=== PATIENT | male | born 1975 | race Caucasian/White ===

== ENCOUNTER 2017-01-12 18:55 | Inpatient (IN) | payer OTHER ==
--- NOTE | ~2017-01-12 | CN ---
Consultation Report [facility] [address] [place]. [address] NAME: KAILA GRANDE : 73 STATUS : ADM IN PAT#: [id number] AGE: 41 ADM/REG DATE : 01/12/17 MR#: [id number] REPORT SERV DATE: 01/14/17 DICTATED BY: MARGARITO NELSON DATE: 01/14/17 REPORT STATUS : Draft TRANSCRIBED BY: MODL DATE: 01/14/17 CONSULTATION DATE OF CONSULTATION: 01/14/2017 HISTORY OF PRESENT ILLNESS: The patient is a 41-year-old white male, who has developed shortness of breath over the past several weeks with increasing symptoms. Came into the hospital with shortness of breath and was found to have heart failure, possible pneumonia. Echocardiogram reveals severe cardiomyopathy with severe MR, ejection fraction 15%. Thought to have a viral myocarditis. PAST MEDICAL HISTORY: Significant for previous operation on his left knee. 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 History of pneumonia in the past. SOCIAL HISTORY: He does smoke. Does occasionally smoke marijuana. He works as a automobile accessories installer. He is , no children. REVIEW OF SYSTEMS: GI: He has been trying to lose weight and lost about 60 pounds. : Negative. NEURO: Negative. MUSCULOSKELETAL: Negative. ENDOCRINE: Negative. HEME/ONC: Negative. ALLERGIES: NO KNOWN ALLERGIES. HOME MEDICATIONS: Included Augmentin 875, and Afrin nasal spray. PHYSICAL EXAMINATION: VITAL SIGNS: Currently, his vital signs are stable. Blood pressure in the morning was 121/69, pulse is 124, temperature 97.4, saturation 100% on nasal cannula. GENERAL: The patient is awake, alert, and oriented. HEENT: Head is normocephalic. Sclerae and conjunctivae are clear. NECK: Supple. Some JVD noted. CHEST: Decreased breath sounds, but clear throughout the lungs. CARDIAC: The PMI is displaced laterally. S1 and S2. Slight ejection murmur heard over the mitral area. ABDOMEN: Slightly obese and nontender. No masses or organomegaly. EXTREMITIES: Scar from previous surgery. +1 edema. NEUROLOGIC: Cranial nerves 2 through 12 intact. Deep tendon reflexes are normal. LABORATORY DATA: Shows sodium 140, potassium 3.8, chloride 106, CO2 of 23, BUN 32, Consultation Report [address] [place]. [address] NAME: KAILA GRANDE : 73 STATUS : ADM IN [facility]#: [id number] AGE: 41 ADM/REG DATE : 01/12/17 MR#: [id number] REPORT SERV DATE: 01/14/17 DICTATED BY: MARGARITO NELSON DATE: 01/14/17 REPORT STATUS : Draft TRANSCRIBED BY: MODTremayne DATE: 01/14/17 creatinine 1.54, glucose 108, calcium 8.2, phosphorus 3.5, total protein 5.7, albumin 2.9. Total bilirubin 0.8, alkaline phosphatase 143, ALT 361, AST 107. CBC: H and H are 15.6 and 44.2, white count 84907, 88 polys, 6 lymphocytes, platelets 221,000. I believe the patient is on IV Solu-Medrol. Blood cultures are negative day 1. Chest PA and lateral taken today shows bibasilar atelectasis and/or infiltrate. Small effusions have improved compared to previous study. Hepatitis profile is negative. IMPRESSION: 1. Cardiomyopathy, probably viral. Echocardiogram shows EF of 15%. 2. Mild elevation of LFTs consistent with hepatic congestion. 3. History of juvenile rheumatoid arthritis. PLAN: Continue diuresis. We will monitor for LifeVest. RP/MARIJA Margarito Nelson M.D. / [id number] CC: Leander Fisher M.D.
--- NOTE | ~2017-01-12 | CN ---
Consultation Report [facility] [address] [place]. [address] NAME: KAILA FLOYD : 73 STATUS : ADM IN PAT#: [id number] AGE: 41 ADM/REG DATE : 01/12/17 MR#: [id number] REPORT SERV DATE: 01/14/17 DICTATED BY: RAF ATWOOD DATE: 01/14/17 REPORT STATUS : Draft TRANSCRIBED BY: MODL DATE: 01/14/17 CONSULTATION DATE OF CONSULTATION: 01/14/2017 REASON FOR CONSULTATION: New cardiomyopathy. HISTORY OF PRESENT ILLNESS: Mr. Floyd is a pleasant 41-year-old man without significant medical history, who was admitted to [facility] on 01/12/2017 for progressive dyspnea and coughing, with a diagnosis of bilateral pneumonia as well as sepsis in this setting. Over the past several weeks, he has had shortness of breath as well as coughing productive of sputum, which had not improved after getting outpatient antibiotics. His symptoms have progressed over the past two weeks, and although he was fully active prior to this, he is now unable to walk even several feet, return in bed without getting significantly dyspneic. Over the past two days in the hospital, he has continued to receive antibiotics, without any improvement in his clinical status whatsoever. He remained significantly tachycardic (sinus), and unable to do much at all. An echocardiogram that was completed this morning demonstrates severe biventricular failure (LVEF of 15%), with significant functional MR. He has no specific complaints. In speaking with him, other than having no exertional capacity at all at this point in time. He does not have any history of chest pains, dizziness, or loss of consciousness. He does not have any cardiac history outside of this recent diagnosis. ALLERGIES: NONE. SOCIAL HISTORY: The patient lives at home with family and was a former smoker, denies drinking alcohol, or doing drugs. FAMILY HISTORY: Noncontributory for premature cardiovascular disease. REVIEW OF SYSTEMS: As above, all other systems otherwise negative. HOME MEDICATIONS: None. PHYSICAL EXAMINATION: VITAL SIGNS: BP 113/58; pulse 110 to 130 beats per minute (sinus); temperature 97. GENERAL: Upset/anxious, in no acute distress otherwise. NEURO: Awake, alert and oriented x3; no focal deficits, appropriate mood. HEENT: Moist mucous membranes, anicteric sclerae, no nasal discharge. HEAD AND NECK: Flat JVP, without obvious hepatojugular reflux. Dry mucous membranes. LUNGS: Clear to auscultation bilaterally, no wheezes, rales or rhonchi. CV: Tachycardic, regular. Normal S1, S2. Distant heart sounds, otherwise no obvious murmurs, rubs, or gallops. Consultation Report [address] [place]. [address] NAME: KAILA FLOYD : 73 STATUS : ADM IN [facility]#: [id number] AGE: 41 ADM/REG DATE : 01/12/17 MR#: [id number] REPORT SERV DATE: 01/14/17 DICTATED BY: RAF ATWOOD DATE: 01/14/17 REPORT STATUS : Draft TRANSCRIBED BY: MARIJA DATE: 01/14/17 ABD: Soft, non-tender, non-distended, no rebound or guarding. EXT: Trace to 1+ edema, cool throughout with decreased pulse pressure in his radial region bilaterally. SKIN: Warm, dry and intact; no rash. PERTINENT TEST FINDINGS: Potassium 4.3, creatinine 1.8 from 1.5. GFR of 52. White blood cell count increasing to 27.8. Troponin is 0.07. BNP of 753, TSH of 2.7. EKG; copy from the outside hospital with sinus tachycardia, septal and anterior Q-waves. Low voltage QRS in the limb leads. IMPRESSION AND PLAN: Mr. Floyd is a pleasant 41-year-old gentleman with no significant medical history, who was admitted with significant shortness of breath as well as coughing in the setting of severe sepsis (significant leukocytosis of 27,000 and tachycardia in the 120s to 130s), found to have severe biventricular dysfunction (LVEF of 10% to 15%) of unclear etiology. His clinical course seems to suggest possible viral myocarditis; however, other causes cannot be fully excluded at this point in time. It will be important to complete an angiogram when appropriate to definitively rule out coronary heart disease as a contributing factor here. Otherwise, he does not appear to be optimized at this point in time, and I do believe he will benefit from being transferred to the Coronary Care Unit, where he can be monitored more closely. He will be started on a beta-heber q.6 hours with interval up titration as tolerated. In addition, I will start him on hydralazine 10 mg p.o. q.6 hours for further afterload reduction in light of the decreased pulse pressure on his clinical. He does not appear to be floridly volume overloaded on my examination, as he only has trace edema in his lower extremities bilaterally, his lungs are clear to auscultation bilaterally, and his JVP is not elevated at this point in time. Therefore, his dyspnea may very well be due to just decompensation from a cardiac output standpoint (low pulse pressure/low output) superimposed on a primary pulmonary process/pneumonia. Further recommendations will follow his clinical course. Otherwise, I do think he will benefit from a Life Vest at this point in time. KAYLEY/MARIJA Raf Atwood MD / [id number] CC: Leander Fisher M.D.
--- NOTE | ~2017-01-12 | HP ---
History And Physical [place] [address] [facility] [place]. [address] NAME: KAILA GRANDE : 73 STATUS : ADM IN [facility]#: [id number] AGE: 41 ADM/REG DATE : 01/12/17 MR#: [id number] REPORT SERV DATE: 01/15/17 DICTATED BY: JENNIFER CARRANZA DATE: 01/15/17 REPORT STATUS : Draft TRANSCRIBED BY: MARIJA DATE: 01/15/17 DATE OF ADMISSION: 01/12/2017 CANCELED DICTATION. ANNA/MARIJA Jennifer Carranza MD / [id number]
--- NOTE | ~2017-01-12 | DS ---
Discharge Summary [facility] [address] [place]. [address] NAME: KAILA GRANDE : 73 STATUS : DIS IN PAT#: [id number] AGE: 41 ADM/REG DATE : 01/12/17 MR#: [id number] REPORT SERV DATE: 01/16/17 DICTATED BY: MARGARITO NELSON DATE: 01/15/17 REPORT STATUS : Draft TRANSCRIBED BY: MODL DATE: 01/15/17 ADMISSION DATE: 01/12/2017 DISCHARGE DATE: 01/15/2017 DATE OF ADMISSION: Transferred from [facility] was on 01/12/2017. DATE OF DISCHARGE: From [facility] CCU to [facility] 01/15/2017. DISCHARGE DIAGNOSES: Cardiogenic shock, cardiomyopathy status post PEA arrest. The patient currently is on mechanical ventilation and on inotropic support. This morning has a Hobbs- Kayley catheter placed. According to the patient's history, he developed increasing shortness of breath for the past several weeks. 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 The patient is in the CCU where he last night underwent a PEA arrest, was resuscitated, placed on hypothermia and mechanical ventilation as well as inotropes and taken to catheterization lab, was found to have a cardiac index of 1.5, cardiac output is 3. Hobbs-Kayley catheter had been placed. No coronary injections done. The patient had an echocardiogram which showed an EF of 15% , dilated LV, and significant MR. PAST MEDICAL HISTORY: SOCIAL HISTORY: Lives at home with family. Former smoker. No alcohol. No drugs. FAMILY HISTORY: Negative for prior cardiac disease. REVIEW OF SYSTEMS: Otherwise negative. MEDICATIONS: Currently on 5 mg of Dobutrex and mechanical ventilation. He is also getting aspirin, Lipitor, Rocephin, Lovenox, and Zithromax. LABORATORY DATA: After the arrest the patient was found to have anoxic encephalopathy, placed on hypothermia protocol, currently on vasopressin and Levophed as well as now dobutamine. Electrolytes this morning, sodium 140, potassium 5.2, chloride 107, CO2 of 14, BUN 37, creatinine 1.97, and glucose 98. H and H 5.1 and 21.1, white count 2007, and platelets 176,000. IMPRESSION: 1. Severe cardiomyopathy. 2. Cardiogenic shock. 3. Acute blood loss anemia. 4. Acute anoxic encephalopathy. Status post cardiac arrest. Discharge Summary [address] [address] NAME: KAILA GRANDE : 73 STATUS : DIS IN PAT#: [id number] AGE: 41 ADM/REG DATE : 01/12/17 MR#: [id number] REPORT SERV DATE: 01/16/17 DICTATED BY: MARGARITO NELSON DATE: 01/15/17 REPORT STATUS : Draft TRANSCRIBED BY: MARIJA DATE: 01/15/17 PLAN: Transfer to [place]. RP/CHARANL Margarito Nelson M.D. / [id number] CC: Quincy Edmonds MD
--- NOTE | ~2017-01-12 | HP ---
History And Physical [place] [address] [place]. [address] NAME: KAILA GRANDE : 73 STATUS : ADM IN PAT#: [id number] AGE: 41 ADM/REG DATE : 01/12/17 MR#: [id number] REPORT SERV DATE: 01/12/17 DICTATED BY: JOHN ARANA DATE: 01/12/17 REPORT STATUS : Draft TRANSCRIBED BY: MODL DATE: 01/12/17 DATE OF ADMISSION: 01/12/2017 CHIEF COMPLAINT: A 41-year-old male presenting with increasing cough, pleurisy, and shortness of breath. HISTORY OF PRESENTING ILLNESS: The patient's history was obtained through careful interview of the patient coupled with review of [facility] medical record. The patient states that for about four or five weeks now he has had symptoms of cough and shortness of breath. He describes dyspnea on exertion and frequent anxiety attacks. He works installing carpet and has found that over the last few weeks, he has been too weak to work effectively. When he first became ill, he had a sinus infection and drainage of some sort, but it seemed to resolve quickly and has not recurred. He describes his cough as nonproductive. He has had chills and rigors and states "it is bone chilling," sometimes he was "pouring sweat" at night, and has had subjective fevers as well. It turns out that earlier this month, the patient's was ill as well, but her respiratory illness seemed to subside within a week or two. He describes pleuritic-like chest discomfort at the left base of his lung in the middle of the chest, a sharp quality, exacerbated by coughing, 7/10 severity. He has had nausea and dry heaves but no actual vomiting. No abdominal pain. Over the last year, he has been trying to lose weight with dietary modifications (he states he eats mostly avocados and healthy foods like that) as well as increased physical activity and he has lost about 60 pounds now. REVIEW OF SYSTEMS: Otherwise, a 14-point review of systems was obtained and was negative. PAST MEDICAL HISTORY: 1. Hypertension but has been off medications for "years.". 2. Hamstring injury, nonsurgical. 3. Anxiety attacks. 4. When he was a young boy, he was hospitalized at [facility] with some kind of rheumatological crisis. He believes he was diagnosed at that time with juvenile rheumatoid arthritis and managed by a frit mixer but apparently, he has had no recurrence of this disease. 5. No cardiac disease. No previous lung disease. History And Physical [address] [address] NAME: KAILA GRANDE : 73 STATUS : ADM IN [facility]#: [id number] AGE: 41 ADM/REG DATE : 01/12/17 MR#: [id number] REPORT SERV DATE: 01/12/17 DICTATED BY: JOHN ARANA DATE: 01/12/17 REPORT STATUS : Draft TRANSCRIBED BY: MARIJA DATE: 01/12/17 PAST SURGICAL HISTORY: 1. Bilateral knee surgery. 2. Shoulder surgery. ALLERGIES: NO KNOWN DRUG ALLERGIES. SOCIAL HISTORY: The patient is a smoker. He quit alcohol. He lives in [place], [place]. He installs carpet. He is . He has no children. He smokes occasional marijuana. FAMILY HISTORY: Father of esophageal cancer, mother with heart disease. Siblings are healthy. CURRENT MEDICATIONS: He denies any currently. PHYSICAL EXAMINATION: VITAL SIGNS: Temperature 98.8, pulse 127, blood pressure 121/92, respiratory rate 20, O2 saturation 99% on room air. GENERAL: A pleasant, cooperative male. He does not appear in any distress while I am evaluating him. HEENT: Pupils are equal, round, and reactive to light. No conjunctival pallor. No scleral icterus. Nares are patent. Oropharynx is clear of obstruction. He has moist mucous membranes. NECK: Trachea midline. No thyromegaly. LYMPH: No cervical lymphadenopathy. No supraclavicular lymphadenopathy. RESPIRATORY: The patient has scattered rhonchi on exam but not too severe. No wheezes, no significant rales. He does have dullness to percussion to suggest bilateral pleural effusions, at least moderate in size and symmetrical. I do not appreciate any focal egophony. He has a nonlabored respiratory effort while I am evaluating him. CARDIOVASCULAR: Tachycardic, regular rhythm. No murmurs, rubs, or gallops. The patient has bilateral pitting lower extremity edema around his ankles, shins, and feet. ABDOMEN: Soft, nontender, nondistended. Normal bowel sounds auscultated throughout. No hepatosplenomegaly. Specifically, there is absolutely no tenderness to the right upper quadrant on deep palpation. DERMATOLOGICAL: Warm and dry extremities. No pallor, no cyanosis. PSYCHIATRIC: Normal affect. Good mood. Alert and oriented x3. LABORATORY DATA: White blood cell count 15.3, hemoglobin 19, hematocrit 56, MCV 101.2, platelets 239. Sodium 132, potassium 5.3, chloride 94, bicarb 25, BUN 19, creatinine 1.3, glucose 102. ProBNP is 4416 (upper limit is in the 400 range). CPK 729. Troponin negative. Lipase 17. Lactic acid 2.9. INR 1.6. AST 413, ALT 511, alkaline phosphatase 155, total bilirubin 2.7. STUDIES: 1. EKG from [facility] and my own evaluation shows anteroseptal infarct changes, left atrial abnormality. I believe these are new when I compared to an EKG from 08/2012. History And Physical [address] [address] NAME: KAILA GRANDE : 73 STATUS : ADM IN [facility]#: [id number] AGE: 41 ADM/REG DATE : 01/12/17 MR#: [id number] REPORT SERV DATE: 01/12/17 DICTATED BY: JOHN ARANA DATE: 01/12/17 REPORT STATUS : Draft TRANSCRIBED BY: MARIJA DATE: 01/12/[address] scan of the abdomen was read as negative with cholelithiasis from [facility]. 3. CT angiogram of the chest from [facility] showed no pulmonary embolism, but bilateral pneumonia that goes into the upper lungs as well and bilateral moderate-to- large pleural effusions. ASSESSMENT AND PLAN: 1. Sepsis, severe. Lactic acid of 2.9, white blood count of 15.3, and tachycardia. Check blood cultures. Place on IV antibiotics. Admit to the IMCU. 2. Volume overload. He only has mild lower extremity edema, really no hypotension. He does have an abnormal EKG and moderately large pleural effusions. I would like to check an echocardiogram to further define the patient's cardiac function. I would like to try gentle diuresis for now with low dose 20 mg IV Lasix balancing out the patient's sepsis and renal insufficiency with definite volume overload. However, we will try IV albumin doses as well. 3. Pneumonia, bilateral disease, progressive over four to five weeks by history. Check blood cultures. Place on IV antibiotics. We will be treating now as if this is a community-acquired pneumonia. 4. Elevated liver enzymes. I question the possibility of chronic hepatic congestion over the last four or five weeks as the patient has such large pleural effusions, but there also is cholelithiasis. There is no abdominal pain at all. So, I doubt this would be anything like cholecystitis or ascending cholangitis. We will check a hepatitis panel, check an ultrasound of the gallbladder here. KPL/MODL John Arana M.D. / [id number] CC: Zakia Reddy D.O.
--- NOTE | ~2017-01-12 | CN ---
Consultation Report [facility] [address] [place]. [address] NAME: KAILA GRANDE : 73 STATUS : ADM IN PAT#: [id number] AGE: 41 ADM/REG DATE : 01/12/17 MR#: [id number] REPORT SERV DATE: 01/15/17 DICTATED BY: DATE: REPORT STATUS : Draft TRANSCRIBED BY: MODL DATE: 01/15/17 NEUROLOGY CONSULTATION DATE OF CONSULTATION: 01/15/2017 REASON FOR CONSULT: Anoxic encephalopathy. 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 The patient was subsequently transferred to the ICU for further monitoring and care and was noted to have increased agitation, was provided with Haldol, and subsequently intubated for airway protection and also had sustained a PEA arrest with the patient resuscitated after a very short amount of time. The patient is currently on hypothermia protocol. Post- resuscitation, the patient was noted to have movement in bilateral upper extremity at times, but was noted to be nonpurposeful and not following commands according to the nursing staff. In addition, myoclonus episodes were also witnessed by the nursing staff. The patient has not received any other sedation or paralytics since intubation. PAST MEDICAL HISTORY: Significant for hypertension, as well as history of anxiety attacks, hamstring injury, recent viral endocarditis. ALLERGIES: THE PATIENT WAS NOTED TO HAVE NO KNOWN DRUG ALLERGIES. SOCIAL HISTORY: Significant for tobacco usage, history of previous alcohol usage, but no current alcohol ingestion. The patient does have occasional marijuana usage per medical record. FAMILY HISTORY: Significant for cancer, heart disease. MEDICATIONS: At the time of evaluation, the patient's current hospital medications consist of hydralazine, aspirin, Bactroban, DuoNeb, guaifenesin, nicotine patch, azithromycin, Lipitor, Lopressor, Lovenox, melatonin, Protonix, and Rocephin. REVIEW OF SYSTEMS: Unable to be obtained secondary to the patient's current mental status. PHYSICAL EXAMINATION: VITAL SIGNS: The patient overnight was noted to have vital signs with T-max of 98.2, heart rates of 82 to 124, respirations of 13 to 28, and blood pressure of 71 to 121 over 66 to 82. GENERAL: The patient is well developed, well nourished, in no acute distress. CARDIOVASCULAR: Mildly tachycardic. No carotid bruits are otherwise auscultated. PULMONARY: Coarse breath sounds auscultated. NEUROLOGICAL: The patient is comatose at the time of evaluation, nonverbal, not following Consultation Report [place] [address] [place]. [address] NAME: KAILA GRANDE : 73 STATUS : ADM IN PAT#: [id number] AGE: 41 ADM/REG DATE : 01/12/17 MR#: [id number] REPORT SERV DATE: 01/15/17 DICTATED BY: DATE: REPORT STATUS : Draft TRANSCRIBED BY: MODL DATE: 01/15/17 commands, intubated. No sedation or paralytics is currently on board. Cranial nerves 2 through 12: Pupils equal, round, and reactive to light, but sluggish at the time of evaluation. No blink to threat response. No significant horizontal eye movement is noted. No corneal reflex is noted. No response to noxious stimulation in bilateral jaw. Gag reflex is otherwise seen. The patient does demonstrate some spontaneous flexion movement of the bilateral upper extremity to sternal rub. The patient does not demonstrate any posturing, withdrawal, or grimace to noxious stimulation in all four extremities. Deep tendon reflex is attenuated. Bilateral lower extremities appear to be mottled, but dorsalis pedis pulse is palpated in bilateral lower extremities. CEREBELLAR: Gait is unable to be evaluated due to the patient's current mental status. LABORATORY STUDIES: White blood cell count of 21.1, hemoglobin of 15.6, hematocrit of 45.8, and platelet count of 173. Chemistry panel: Sodium of 140, potassium 5.2, chloride 107, bicarb 14, BUN of 37, creatinine 1.97, glucose of 98. Calcium was 7.9, magnesium 2.7. Serum ammonia was noted to be 29. Serum ABG demonstrated pH of 7.31, pCO2 of 24, pO2 of 444, bicarb of 11.9, O2 saturation of 99.8. No neuro imaging was obtained at the time of evaluation. IMPRESSION: Anoxic encephalopathy. Spontaneous movement in the right upper extremity and some in the left upper extremity with flexion noted on sternal rub. We will start the patient on Keppra 1000 mg IV b.i.d. for observed myoclonus episode by the medical staff. We will obtain EEG study for evaluation. Continue hypothermia protocol. We will continue supportive care. RECOMMENDATIONS: 1. Hypothermia protocol. 2. Keppra 1000 mg IV b.i.d. 3. EEG today. [facility]/MODL Scott Gomez MD / [id number] CC: Leander Fisher M.D. NO PCP
[2017-01-12 22:00] LABS: BASOPHILS 0.1 %; BASOPHILS ABSOLUTE 0.01 10/3/uL (0.0-0.16); EOSINOPHILS 0 %; IMMATURE GRANULOCYTES 0.4 %; IMMATURE GRANULOCYTES ABSOLUTE 0.05 10/3/uL (0.0-0.11); LYMPHOCYTES 7.6 %; LYMPHOCYTES ABSOLUTE 0.88 10/3/uL (0.67-4.30); MEAN CORPUS HGB CONC 35.3 g/dL (32.0-36.0); MEAN CORPUSCULAR HEMOGLOB 35.3 pg (26.0-34.0); MEAN PLATELET VOLUME 10.6 fL (9.2-13.0); MONOCYTES 1.6 %; MONOCYTES ABSOLUTE 0.19 10/3/uL (0.21-1.20); NEUTROPHILS 90.3 %; NEUTROPHILS ABSOLUTE 10.45 10/3/uL (2.02-8.40); PLATELET COUNT 245 10/3/uL (150-400); RBC DISTRIBUTION WIDTH 14.7 % (12.0-16.0); WHITE BLOOD CELLS 11.6 10/3/uL (4.5-10.5)
[2017-01-12 22:01] LABS: MANUAL DIFF NO %
[2017-01-12 22:06] LABS: WBC (NOT ORDERED) (RFLEX) 0 (0-5)
[2017-01-12 22:12] LABS: A/G RATIO 0.9 (0.7-1.9); ALKALINE PHOSPHATASE 158 U/L (45-117); BUN (BLOOD UREA NITROGEN) 23 MG/DL (6-23); CALCIUM, SERUM 8.3 MG/DL (8.5-10.4); CHLORIDE, SERUM 99 MMOL/L (96-112); CO2 (CARBON DIOXIDE) 26 MMOL/L (24-34); GFR AFRICAN AMERICAN 66 ML/MIN (>=60); GFR NON AFRICAN AMERICAN 57 ML/MIN (>=60); GLOBULIN 3.3 G/DL (2.5-4.1); GLUCOSE, SERUM 113 MG/DL (60-99); PHOSPHORUS, SERUM 3.8 MG/DL (2.5-4.5); POTASSIUM, SERUM 4.8 MMOL/L (3.5-5.3); SGOT(AST) 394 U/L (5-40); SGPT(ALT) 570 U/L (5-65); SODIUM, SERUM 137 MMOL/L (135-148); TOTAL BILIRUBIN 2.5 MG/DL (0-1.2); TOTAL PROTEIN 6.3 G/DL (6.0-8.5)
[2017-01-12 22:13] LABS: LACTATE 3.6 MMOL/L (0.3-2.4)
[2017-01-12 22:24] LABS: ASCORBIC ACID (UR NOT ORDER) NEG (NEG); BILIRUBIN, URINE NEGATIVE (NEG); KETONE, URINE NEGATIVE (NEG); LEUKOCYTE ESTERASE(NOT OR NEG (NEG)
[2017-01-12 22:44] LABS: PROCALCITONIN 0.26 ng/mL (<0.5)
[2017-01-13 05:12] LABS: BASOPHILS 0.1 %; BASOPHILS ABSOLUTE 0.02 10/3/uL (0.0-0.16); EOSINOPHILS 0 %; HEMOGLOBIN 16.8 g/dL (13.6-17.8); IMMATURE GRANULOCYTES 0.6 %; IMMATURE GRANULOCYTES ABSOLUTE 0.09 10/3/uL (0.0-0.11); LYMPHOCYTES ABSOLUTE 1.51 10/3/uL (0.67-4.30); MEAN CORPUSCULAR HEMOGLOB 34.9 pg (26.0-34.0); MEAN CORPUSCULAR VOLUME 99.6 fL (80-100); MEAN PLATELET VOLUME 10.5 fL (9.2-13.0); MONOCYTES 3.6 %; MONOCYTES ABSOLUTE 0.54 10/3/uL (0.21-1.20); NEUTROPHILS 85.7 %; NEUTROPHILS ABSOLUTE 12.99 10/3/uL (2.02-8.40); PLATELET COUNT 228 10/3/uL (150-400); RBC DISTRIBUTION WIDTH 14.8 % (12.0-16.0); RED CELL COUNT 4.82 10/6/uL (4.7-6.1); WHITE BLOOD CELLS 15.2 10/3/uL (4.5-10.5)
[2017-01-13 05:14] LABS: MANUAL DIFF NO %
[2017-01-13 05:17] LABS: INTERNATIONAL NORMAL RATI 1.9 UNITS (-); PARTIAL THROMBO TIME 35.4 SEC (22.5-37.2); PROTIME (NOT ORD) 21.3 SEC (12.0-14.5)
[2017-01-13 07:50] LABS: A/G RATIO 1.1 (0.7-1.9); ALBUMIN 3.3 G/DL (3.5-5.0); ALKALINE PHOSPHATASE 164 U/L (45-117); CALCIUM, SERUM 8.2 MG/DL (8.5-10.4); CHLORIDE, SERUM 105 MMOL/L (96-112); CO2 (CARBON DIOXIDE) 25 MMOL/L (24-34); CREATININE 1.81 MG/DL (0.70-1.30); GFR AFRICAN AMERICAN 52 ML/MIN (>=60); GFR NON AFRICAN AMERICAN 45 ML/MIN (>=60); GLUCOSE, SERUM 126 MG/DL (60-99); POTASSIUM, SERUM 4.3 MMOL/L (3.5-5.3); PREALBUMIN 9.5 MG/DL (17.0-43.0); SGOT(AST) 329 U/L (5-40); SGPT(ALT) 537 U/L (5-65); SODIUM, SERUM 140 MMOL/L (135-148); TOTAL PROTEIN 6.3 G/DL (6.0-8.5)
[2017-01-13 07:51] LABS: BUN (BLOOD UREA NITROGEN) 27 MG/DL (6-23); TOTAL BILIRUBIN 1.4 MG/DL (0-1.2); TROPONIN I 0.07 NG/ML (<0.05)
[2017-01-13] MEDS ORDERED: AUG875 PO (20:06)
[2017-01-13] MEDS ORDERED: M-END DMX LIQU473 ML PO (20:06)
[2017-01-13] MEDS ORDERED: [UNRECOGNIZED DRUG - REMARK] NAS (20:07)
[2017-01-14 07:40] LABS: HEMATOCRIT 44.2 % (40.0-51.0); HEMOGLOBIN 15.6 g/dL (13.6-17.8); MEAN CORPUS HGB CONC 35.3 g/dL (32.0-36.0); MEAN CORPUSCULAR HEMOGLOB 34.8 pg (26.0-34.0); MEAN CORPUSCULAR VOLUME 98.7 fL (80-100); MEAN PLATELET VOLUME 10.3 fL (9.2-13.0); PLATELET COUNT 221 10/3/uL (150-400); RBC DISTRIBUTION WIDTH 15.5 % (12.0-16.0); RED CELL COUNT 4.48 10/6/uL (4.7-6.1)
[2017-01-14 07:43] LABS: WHITE BLOOD CELLS 27.8 10/3/uL (4.5-10.5)
[2017-01-14 07:44] LABS: MANUAL DIFF YES %
[2017-01-14 08:02] LABS: ALBUMIN 2.9 G/DL (3.5-5.0); CALCIUM, SERUM 8.2 MG/DL (8.5-10.4); CHLORIDE, SERUM 106 MMOL/L (96-112); CO2 (CARBON DIOXIDE) 23 MMOL/L (24-34); CREATININE 1.54 MG/DL (0.70-1.30); DIRECT BILIRUBIN 0.4 MG/DL (0.0-0.4); GFR AFRICAN AMERICAN 64 ML/MIN (>=60); GFR NON AFRICAN AMERICAN 55 ML/MIN (>=60); GLUCOSE, SERUM 108 MG/DL (60-99); PHOSPHORUS, SERUM 3.5 MG/DL (2.5-4.5); POTASSIUM, SERUM 3.8 MMOL/L (3.5-5.3); SGOT(AST) 107 U/L (5-40); SGPT(ALT) 361 U/L (5-65); SODIUM, SERUM 140 MMOL/L (135-148); TOTAL PROTEIN 5.7 G/DL (6.0-8.5)
[2017-01-14 08:04] LABS: ALKALINE PHOSPHATASE 143 U/L (45-117); BUN (BLOOD UREA NITROGEN) 32 MG/DL (6-23); INDIRECT BILIRUBIN(NOT ORDER) 0.4 MG/DL (0.1-0.9); TOTAL BILIRUBIN 0.8 MG/DL (0-1.2)
[2017-01-14 08:10] LABS: LYMPHOCYTES 6 %; LYMPHOCYTES ABSOLUTE (CALC) 1.67 10/3/uL (0.67-4.30); MONOCYTES 6 %; MONOCYTES ABSOLUTE (CALC) 1.67 10/3/uL (0.21-1.20); NEUTROPHILS ABSOLUTE (CALC) 24.46 10/3/uL (2.02-8.40); PLATELET ESTIMATE ADQ (ADEQUATE); RBC MORPHOLOGY NORM (NORMAL); SEGMENTED NEUTROPHIL (0) 88 %; TOTAL NUCLEATED CELLS 100
[2017-01-14 11:48] LABS: HEPATITIS B SURFACE ANTIGEN NON-REACTIVE (NON-REACT)
[2017-01-14 12:15] LABS: HEPATITIS C ANTIBODY NON-REACTIVE (NON-REACT)
[2017-01-14 12:16] LABS: HEPATITIS B CORE AB IGM NON-REACTIVE (NON-REAC)
[2017-01-14 12:17] LABS: HEP A ANTIBODY IGM NON-REACTIVE (NON-REACT)
[2017-01-14 13:36] LABS: C-REACTIVE PROTEIN ULTRAQUANT 24.9 MG/L (<3.0)
[2017-01-15 01:12] LABS: BASOPHILS 0.2 %; BASOPHILS ABSOLUTE 0.04 10/3/uL (0.0-0.16); EOSINOPHILS 0.1 %; EOSINOPHILS ABSOLUTE 0.02 10/3/uL (0.0-0.53); HEMATOCRIT 47.6 % (40.0-51.0); HEMOGLOBIN 15.9 g/dL (13.6-17.8); IMMATURE GRANULOCYTES 2.6 %; IMMATURE GRANULOCYTES ABSOLUTE 0.49 10/3/uL (0.0-0.11); LYMPHOCYTES 16.8 %; LYMPHOCYTES ABSOLUTE 3.12 10/3/uL (0.67-4.30); MANUAL DIFF NO %; MEAN CORPUS HGB CONC 33.4 g/dL (32.0-36.0); MEAN CORPUSCULAR HEMOGLOB 34.8 pg (26.0-34.0); MEAN CORPUSCULAR VOLUME 104.2 fL (80-100); MEAN PLATELET VOLUME 10.8 fL (9.2-13.0); MONOCYTES 7.6 %; MONOCYTES ABSOLUTE 1.42 10/3/uL (0.21-1.20); NEUTROPHILS 72.7 %; NEUTROPHILS ABSOLUTE 13.51 10/3/uL (2.02-8.40); PLATELET COUNT 183 10/3/uL (150-400); RED CELL COUNT 4.57 10/6/uL (4.7-6.1); WHITE BLOOD CELLS 18.6 10/3/uL (4.5-10.5)
[2017-01-15 01:15] LABS: INTERNATIONAL NORMAL RATI 1.7 UNITS (-); PARTIAL THROMBO TIME 30.9 SEC (22.5-37.2); PROTIME (NOT ORD) 19.4 SEC (12.0-14.5)
[2017-01-15 01:33] LABS: ALBUMIN 2.7 G/DL (3.5-5.0); ALKALINE PHOSPHATASE 139 U/L (45-117); BUN (BLOOD UREA NITROGEN) 35 MG/DL (6-23); CALCIUM, SERUM 7.5 MG/DL (8.5-10.4); CHLORIDE, SERUM 103 MMOL/L (96-112); CO2 (CARBON DIOXIDE) 19 MMOL/L (24-34); DIRECT BILIRUBIN 0.4 MG/DL (0.0-0.4); POTASSIUM, SERUM 3.7 MMOL/L (3.5-5.3); SGPT(ALT) 344 U/L (5-65); SODIUM, SERUM 140 MMOL/L (135-148); TOTAL PROTEIN 5.3 G/DL (6.0-8.5)
[2017-01-15 01:34] LABS: ACETAMINOPHEN LEVEL (TYLENOL) < 2.0 MCG/ML (10.0-20.0); ALCOHOL < 10 MG/DL (0); CREATININE 2.09 MG/DL (0.70-1.30); GFR AFRICAN AMERICAN 44 ML/MIN (>=60); GFR NON AFRICAN AMERICAN 38 ML/MIN (>=60); GLUCOSE, SERUM 132 MG/DL (60-99); PHOSPHORUS, SERUM 5.1 MG/DL (2.5-4.5); SALICYLATE < 1.7 MG/DL (-); SGOT(AST) 164 U/L (5-40); TOTAL BILIRUBIN 1.4 MG/DL (0-1.2)
[2017-01-15 03:29] LABS: BE (BASE EXCESS) -12.2 MEQ/L (0 +/- 2.5); HCO3 (ACTUAL BICARBONATE) 11.9 MEQ/L (23-27); INSTRUMENT SERIAL # 35151; PCO2 (CO2 TENSION) 24 MMHG (35-45); PO2 (O2 TENSION) 444 MMHG (79-93); pH 7.31 (7.37-7.43)
[2017-01-15 03:30] LABS: CARBOXYHEMOGLOBIN 0.1 % (0-3); HEMOBLOGIN CONTENT 15.5 G/DL (14-18); METHEMOGLOBIN 0.6 % (0-3); MODE CMV; O2 CONTENT 22.7 VOL% (18-24); SAMPLE Arterial; TIDAL VOLUME 600 ML
[2017-01-15 05:46] LABS: INTERNATIONAL NORMAL RATI 2.2 UNITS (-); PARTIAL THROMBO TIME 36.2 SEC (22.5-37.2); PROTIME (NOT ORD) 23.9 SEC (12.0-14.5)
[2017-01-15 05:54] LABS: HEMATOCRIT 45.8 % (40.0-51.0); HEMOGLOBIN 15.6 g/dL (13.6-17.8); MEAN CORPUS HGB CONC 34.1 g/dL (32.0-36.0); MEAN CORPUSCULAR HEMOGLOB 34.7 pg (26.0-34.0); MEAN CORPUSCULAR VOLUME 101.8 fL (80-100); MEAN PLATELET VOLUME 10.8 fL (9.2-13.0); PLATELET COUNT 173 10/3/uL (150-400); RBC DISTRIBUTION WIDTH 15.7 % (12.0-16.0); WHITE BLOOD CELLS 21.1 10/3/uL (4.5-10.5)
[2017-01-15 05:55] LABS: MANUAL DIFF YES %
[2017-01-15 06:10] LABS: A/G RATIO 1.1 (0.7-1.9); ALBUMIN 2.8 G/DL (3.5-5.0); BUN (BLOOD UREA NITROGEN) 37 MG/DL (6-23); CALCIUM, SERUM 7.9 MG/DL (8.5-10.4); CHLORIDE, SERUM 107 MMOL/L (96-112); CHOL/HDL RATIO(NOT ORDER) 5.3 (0-5); CHOLESTEROL 96 MG/DL (< 200); CREATININE 1.97 MG/DL (0.70-1.30); GFR AFRICAN AMERICAN 47 ML/MIN (>=60); GFR NON AFRICAN AMERICAN 41 ML/MIN (>=60); GLOBULIN 2.5 G/DL (2.5-4.1); HDL CHOLESTEROL 18 MG/DL (> 39); LDL CHOLESTEROL 64 MG/DL (< 130); NON-HDL CHOLESTEROL 78 MG/DL (< 160); SGOT(AST) 281 U/L (5-40); SGPT(ALT) 410 U/L (5-65); SODIUM, SERUM 140 MMOL/L (135-148); TOTAL PROTEIN 5.3 G/DL (6.0-8.5); TRIGLYCERIDE 72 MG/DL (< 150)
[2017-01-15 06:13] LABS: ALKALINE PHOSPHATASE 162 U/L (45-117); CO2 (CARBON DIOXIDE) 14 MMOL/L (24-34); DIRECT BILIRUBIN 0.8 MG/DL (0.0-0.4); GLUCOSE, SERUM 98 MG/DL (60-99); INDIRECT BILIRUBIN(NOT ORDER) 1.6 MG/DL (0.1-0.9); POTASSIUM, SERUM 5.2 MMOL/L (3.5-5.3); TOTAL BILIRUBIN 2.4 MG/DL (0-1.2)
[2017-01-15 06:19] LABS: BAND NEUTROPHILS 3 %; IMMATURE GRANS ABSOLUTE (CALC) 0.42 10/3/uL (0.0-0.11); LYMPHOCYTES 9 %; MACROCYTES 1+ (5-10/OIF) (0-5/OIF); METAMYELOCYTES 2 %; MONOCYTES 7 %; MONOCYTES ABSOLUTE (CALC) 1.48 10/3/uL (0.21-1.20); PLATELET ESTIMATE ADQ (ADEQUATE); SEGMENTED NEUTROPHIL (0) 79 %; TOTAL NUCLEATED CELLS 100
[2017-01-15 06:24] LABS: CK-MB 10.5 NG/ML; CPK 297 U/L (0-200)
[2017-01-15 06:26] LABS: CKMB INDEX (NOT ORD) 3.5; TROPONIN I 0.07 NG/ML (<0.05)
[2017-01-15 08:54] LABS: HEPATITIS B SURFACE ANTIGEN NON-REACTIVE (NON-REACT)
[2017-01-15 09:03] LABS: HEPATITIS B CORE AB IGM NON-REACTIVE (NON-REAC); HEPATITIS C ANTIBODY NON-REACTIVE (NON-REACT)
[2017-01-15 09:04] LABS: HEP A ANTIBODY IGM NON-REACTIVE (NON-REACT)
[2017-01-15 09:44] LABS: INSTRUMENT SERIAL # 35151; pH 7.34 (7.37-7.43)
[2017-01-15 09:45] LABS: BE (BASE EXCESS) -9.7 MEQ/L (0 +/- 2.5); CARBOXYHEMOGLOBIN 0.6 % (0-3); HCO3 (ACTUAL BICARBONATE) 14.1 MEQ/L (23-27); HEMOBLOGIN CONTENT 16.3 G/DL (14-18); METHEMOGLOBIN 0.6 % (0-3); O2 CONTENT 22.8 VOL% (18-24); PCO2 (CO2 TENSION) 27 MMHG (35-45); PO2 (O2 TENSION) 185 MMHG (79-93); SAMPLE Arterial; TIDAL VOLUME 450 ML
== END 2017-01-15 15:49 | disposition short-term general hospital (02) | DRG 871 ==
LOC: IMCU 18:55 → 6NO 01-13 10:33 → CCU 01-14 12:20
PROVIDERS: Hospitalist; Internal Medicine
PROC: 5A1945Z Respiratory Ventilation, 24-96 Consecutive Hours (ICD-10-PCS; principal; 2017-01-15)
PROC: 0BH17EZ Insertion of Endotracheal Airway into Trachea, Via Natural or Artificial Opening (ICD-10-PCS; 2017-01-15)
PROC: 02HV33Z Insertion of Infusion Device into Superior Vena Cava, Percutaneous Approach (ICD-10-PCS; 2017-01-15)
PROC: 4A02X4A Measurement of Cardiac Electrical Activity, Guidance, External Approach (ICD-10-PCS; 2017-01-15)
PROC: B2141ZZ Fluoroscopy of Right Heart using Low Osmolar Contrast (ICD-10-PCS; 2017-01-15)
PROC: 4A023N6 Measurement of Cardiac Sampling and Pressure, Right Heart, Percutaneous Approach (ICD-10-PCS; 2017-01-15)
DX: A41.9 Sepsis, unspecified organism (principal); J18.9 Pneumonia, unspecified organism; I21.09 ST elevation (STEMI) myocardial infarction involving other coronary artery of anterior wall; R57.0 Cardiogenic shock; I46.9 Cardiac arrest, cause unspecified; J96.00 Acute respiratory failure, unspecified whether with hypoxia or hypercapnia; G93.1 Anoxic brain damage, not elsewhere classified; K76.1 Chronic passive congestion of liver; I50.23 Acute on chronic systolic (congestive) heart failure; N17.9 Acute kidney failure, unspecified; I42.0 Dilated cardiomyopathy; D62 Acute posthemorrhagic anemia; I27.2 Other secondary pulmonary hypertension; R65.20 Severe sepsis without septic shock; I51.4 Myocarditis, unspecified; I10 Essential (primary) hypertension; F41.9 Anxiety disorder, unspecified; E87.70 Fluid overload, unspecified; J44.9 Chronic obstructive pulmonary disease, unspecified; K80.20 Calculus of gallbladder without cholecystitis without obstruction; I34.0 Nonrheumatic mitral (valve) insufficiency; G40.909 Epilepsy, unspecified, not intractable, without status epilepticus; Z87.891 Personal history of nicotine dependence; Z82.49 Family history of ischemic heart disease and other diseases of the circulatory system; Z80.9 Family history of malignant neoplasm, unspecified
CPT/HCPCS: 31720; 36569; 36600; 71010; 71020; 74000; 76705; 76937; 80048; 80053; 80061; 80069; 80074; 80076; 80307; 81001; 82140; 82150; 82248; 82330; 82533; 82550; 82553; 82803; 82805; 82947; 83605; 83690; 83735; 83880; 84100; 84132; 84134; 84145; 84295; 84443; 84484; 85014; 85025; 85610; 85652; 85730; 86141; 86738; 87040; 87449; 87581; 87641; 92950; 93005; 93451; 94002; 94003; 94640; 94770; A9270-GY; C1751; C1894; C8929; C9113; J0456; J1630; J1940; J1953; J2405; J3475; J3486; P9047; Q9957

== ENCOUNTER 2017-02-21 05:03 | Inpatient (IN) | payer OTHER ==
--- NOTE | ~2017-02-21 | HP ---
History And Physical [place] [id number] [facility] [place]. [address] NAME: KAILA GRANDE : 73 STATUS : ADM IN [facility]#: [id number] AGE: 41 ADM/REG DATE : 02/21/17 MR#: [id number] REPORT SERV DATE: 02/21/17 DICTATED BY: ANNETTE ARAMBULA DATE: 02/21/17 REPORT STATUS : Draft TRANSCRIBED BY: MODTremayne DATE: 02/21/17 DATE OF ADMISSION: 02/21/2017 CHIEF COMPLAINT: Shortness of breath. HISTORY OF PRESENT ILLNESS: The patient is a very pleasant 41-year-old, unfortunate white male, who was diagnosed with a cardiomyopathy back in early 01/2017. He presented to the hospital with acute shortness of breath, ultimately had a PEA arrest, was intubated and placed on the hypothermic protocol. He had evidence of a cardiomyopathy with an EF around 10%-15%, which was thought to be due to possibly to a viral cause. He was ultimately transferred to [facility] for evaluation for transplant. There, he was found to have anoxic encephalopathy and abnormal cognition, was thus deemed inappropriate for transplantation. He was in the hospital for about a month and ultimately, discharged home on 02/13. This morning, he woke, he was acutely short of breath and anxious, asking his to call an ambulance. He did not have chest pain. He has not had a fever. He has not had a new cough. He just felt short of breath. He is too short of breath with minimal movement. He can walk only a few feet. He has not had any peripheral edema. He does have typical orthopnea. He has had some nausea, vomiting and since yesterday, he has vomited about four times. He has hemorrhoids, but no history of diarrhea. PAST MEDICAL HISTORY: Positive for: 1. 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 2. Severe mitral regurg. 3. Cardiogenic shock with PEA arrest and subsequent anoxic brain injury. 4. 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 5. Previous hypertension. 6. Anxiety. 7. Previous possible juvenile rheumatoid arthritis as a child, but now resolved. SOCIAL HISTORY: Previously smoked. Does not use alcohol. He is . ALLERGIES: NO KNOWN DRUG ALLERGIES. HOME MEDICATIONS: Reviewed and attached. FAMILY HISTORY: His mother had CHF, but she is well into her 70s. His father of esophageal cancer. Siblings are healthy. REVIEW OF SYSTEMS: Full 10-point review of systems obtained. Pertinent positives are mentioned in the HPI. PHYSICAL EXAMINATION: VITAL SIGNS: BP 95/56, sats are 100% currently on room air. His temperature was 95.5 initially, a repeat temperature is 98.7. Pulse is 101. GENERAL: Pale-appearing white male. HEENT: Normocephalic, atraumatic. Throat is clear. History And Physical [address] [address] NAME: KAILA GRANDE : 73 STATUS : ADM IN [facility]#: [id number] AGE: 41 ADM/REG DATE : 02/21/17 MR#: [id number] REPORT SERV DATE: 02/21/17 DICTATED BY: ANNETTE ARAMBULA DATE: 02/21/17 REPORT STATUS : Draft TRANSCRIBED BY: MARIJA DATE: 02/21/17 NECK: Supple. HEART: Regular rate and rhythm. LUNGS: He has some discrete crackles at the right base. ABDOMEN: Soft, it is nondistended. EXTREMITIES: Warm and dry. He has 2+ pulses at the feet. He has no peripheral edema that is noted. NEURO: He is alert. He is not oriented to place or time, but is oriented to person. Speech is intact. He moves all four extremities appropriately. He does have some twitching which his states is not new. LABORATORY AND X-RAY: H and H 13 and 39, white count 13, platelets 284. Sodium 134, potassium 5.1, chloride 99, CO2 of 17, BUN and creatinine 29 and 1.61, glucose 57, on repeat was 45. ABG 7.37/22/60. Total bilirubin is 2.4, alkaline phosphatase 270, ALT is 924, AST is 1155, albumin 3.1. EKG shows sinus tachycardia with no acute ST-T wave changes. Chest x ray shows bilateral effusions and pulmonary edema. ASSESSMENT/PLAN: 1. Class heart failure with associated pulmonary edema on chest x-ray. No peripheral edema. Exam is really not impressive. He is 100% on room air. Currently, his pulse is 103. His blood pressure is in the 90s, systolic. I am going to give him one dose of IV Lasix and have [facility] see him in consultation. I really think we need their expertise in management of this complex patient. He ultimately does need a transplant. However, given his anoxic brain injury, this may prove to be difficult. We will continue his beta-heber for now and his Aldactone, but we will need to watch his potassium closely. He currently looks stable as far his rhythm, his blood pressure, and his sats. I think he could go to a tele bed. 2. Hypoglycemia. I suspect this could be due to his advanced cardiac disease and heart failure. There is no other real etiology here, although he does have some abnormal LFTs, certainly liver failure can also cause hypoglycemia. I gave him some D50 in the room. We are going to put him on a D10 drip at a low rate of 30, fingerstick blood sugars every hour, and hopefully when his nausea and vomiting improves, he can start to eat. 3. Abnormal LFTs. Likely secondary passing congestive heart failure. I think this is a very poor prognostic indicator, but must also rule out other etiology. We will check his coags. We will also check a right upper quadrant ultrasound. Check an amylase, lipase, and go from there. We will need to monitor his LFTs. 4. Chronic kidney disease. His creatinine has been up since discharge back in January. 5. Anoxic encephalopathy. He seems to have improved dramatically since it initially occurred. If he continues to improve, I suspect he could be eventually a candidate for transplantation. 6. DVT prophylaxis, subcutaneous heparin. 7. Disposition, pending above aforementioned plan and workup. 8. Prognosis, poor. Given advanced cardiomyopathy as well as now liver effects as well as end-stage renal effects, as well as now hypoglycemia, I think these are all poor prognostic indicators. 9. We will await [facility] input for further plan. History And Physical [address] [place]. [address] NAME: KAILA GRANDE : 73 STATUS : ADM IN PAT#: [id number] AGE: 41 ADM/REG DATE : 02/21/17 MR#: [id number] REPORT SERV DATE: 02/21/17 DICTATED BY: ANNETTE ARAMBULA DATE: 02/21/17 REPORT STATUS : Draft TRANSCRIBED BY: MARIJA DATE: 02/21/17 ARYA/MODL Annette Arambula M.D. / [id number] CC: Emerald Nugent M.D.
--- NOTE | ~2017-02-21 | CN ---
Consultation Report [facility] [address] [place]. [address] NAME: KAILA FLOYD : 73 STATUS : ADM IN [facility]#: [id number] AGE: 41 ADM/REG DATE : 02/21/17 MR#: [id number] REPORT SERV DATE: 02/21/17 DICTATED BY: BELTRAN PASTOR DATE: 02/21/17 REPORT STATUS : Draft TRANSCRIBED BY: MODL DATE: 02/21/17 CARDIOLOGY CONSULTATION DATE OF CONSULTATION: 02/21/2017 REASON FOR CONSULTATION: Heart failure. HISTORY OF PRESENT ILLNESS: Mr. Floyd is a 41-year-old male who we have been asked to see by the Hospitalist Service for management of heart failure. He has a complicated recent medical history notable for an admission to [facility] on 01/2017 with signs and symptoms of heart failure and eventual diagnosis of a severely decompensated nonischemic cardiomyopathy. He was treated for sepsis and had a hospital course complicated by PEA arrest with successful resuscitation, but subsequent anoxic encephalopathy. He was transferred after stabilization to [facility] for consideration of advanced heart failure support. The details of his hospital course at [place] are not available at the time of dictation, but he spent several weeks there and was discharged just last week. He states that transplant and ventricular assist devices were discussed, but apparently he was deemed to be a suboptimal candidate at least partially due to his anoxic encephalopathy. He was discharged in good condition and states that he was ambulatory and compliant with his medications. He has experienced progressive shortness of breath since discharge and feels generally weak at this time. He reports compliance with his medication and states that he has been trying to maintain a low-sodium diet. He has had no presyncope or syncope. He has had no palpitations. He has had some nausea and had an episode of emesis during my evaluation with him. He has been increasingly short of breath and has had a hard time lying flat on his back. PAST MEDICAL HISTORY: 1. Nonischemic cardiomyopathy, heart failure, reduced ejection fraction. 2. Chronic kidney disease. 3. History of tobacco abuse. MEDICATIONS: Home medications include Lasix, Keppra, Toprol, and Aldactone. ALLERGIES: NO KNOWN DRUG ALLERGIES. FAMILY HISTORY: Noncontributory. SOCIAL HISTORY: The patient is born and raised in [facility]. He is . He has a sister, who lives nearby. 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 He used to smoke, but is now abstaining. REVIEW OF SYSTEMS: Consultation Report [place] [id number] [place]. [address] NAME: KAILA FLOYD : 73 STATUS : ADM IN PAT#: [id number] AGE: 41 ADM/REG DATE : 02/21/17 MR#: [id number] REPORT SERV DATE: 02/21/17 DICTATED BY: BELTRAN PASTOR DATE: 02/21/17 REPORT STATUS : Draft TRANSCRIBED BY: MARIJA DATE: 02/21/17 Per HPI, otherwise negative. PHYSICAL EXAMINATION: VITAL SIGNS: Heart rate approximately 110, blood pressure 100/70, respiratory rate 18. GENERAL: Thin male, appears uncomfortable, sitting up at bedside. HEENT: Sclerae anicteric. Mucous membranes are moist. NECK: Supple. CARDIOVASCULAR: Displaced PMI with a rapid heart rate, regular. Soft systolic murmur appreciated at the apex. PULMONARY: Diminished breath sounds bilaterally without wheezes. No obvious rales. ABDOMEN: Soft, nondistended, nontender. EXTREMITIES: Warm. No significant pedal edema is present. LABORATORY DATA: Reviewed. Sodium 134; potassium 5.1; chloride 99; bicarb 17; BUN 29; creatinine 1.6; GFR approximately 52. Calcium 9.0; protein 7.5; albumin 3.1; total bilirubin 2.7; alkaline phosphatase 270; AST 1155; ALT 929. WBC 3.87, hemoglobin 13.4, MCV 100.3, and platelets 284. Blood work: Initial blood glucose 45, followed by 110, 107. EKG demonstrates sinus tachycardia, rate of 123. Nonspecific ST-segment abnormalities present. Chest x-ray demonstrates bilateral airspace abnormalities obscuring the costophrenic angles bilaterally. IMPRESSION/RECOMMENDATIONS: 1. Nonischemic cardiomyopathy. 2. Heart failure with reduced ejection fraction, acute on chronic, characterized by dyspnea and weakness. 3. History of pulseless electrical activity arrest with subsequent anoxic encephalopathy. 4. Transaminitis. 5. Chronic kidney disease. 6. History of functional mitral regurgitation. 7. Hypertension. 8. Abnormal chest x-ray suggestive of pleural effusions. The patient's presentation is suggestive of decompensation with regard to his heart failure. He continues to have a low blood pressure consistent with his severe cardiomyopathy and signs of pulmonary congestion by radiographic studies. Despite reported compliance in using outpatient diuretic, he has deteriorated over the last week. I agree with IV diuresis, which he will continue for the next 24 hours and deescalate based on response. I recommend continuing Toprol and Aldactone at current doses. We will consider afterload reduction with BiDil as blood pressure tolerates. Plan for right upper quadrant ultrasound noted. Suspect transaminitis is related to heart failure syndrome. I will not repeat echo at this time, Consultation Report [place] [id number] [place]. [address] NAME: KAILA FLOYD : 73 STATUS : ADM IN PAT#: [id number] AGE: 41 ADM/REG DATE : 02/21/17 MR#: [id number] REPORT SERV DATE: 02/21/17 DICTATED BY: BELTRAN PASTOR DATE: 02/21/17 REPORT STATUS : Draft TRANSCRIBED BY: CHARANL DATE: 02/21/17 but would request records from [facility]. Thank you for your consultation. We will follow with you. BRITTANEY/MARIJA Beltran Pastor MD / [id number] CC: Emerald Nugent M.D.
--- NOTE | ~2017-02-21 | CN ---
Consultation Report [facility] [address] [place]. [address] NAME: KAILA FLOYD : 73 STATUS : ADM IN [facility]#: [id number] AGE: 41 ADM/REG DATE : 02/21/17 MR#: [id number] REPORT SERV DATE: 02/22/17 DICTATED BY: BOY RAGLAND DATE: 02/22/17 REPORT STATUS : Draft TRANSCRIBED BY: MODL DATE: 02/22/17 GI CONSULTATION DATE OF CONSULTATION: 02/21/2017 REASON FOR CONSULTATION: Elevated liver enzymes and hematemesis. HISTORY OF PRESENT ILLNESS: Mr. Floyd is a 41-year-old, white male, who has unfortunately been recently diagnosed with cardiomyopathy thought to be secondary to a viral infection in January of this year. His ejection fraction is 10% to 15%. He has severe mitral regurgitation. He actually had a PA arrest when he presented with dyspnea earlier this January, and has had seizures secondary to his PEA. He also had some anoxic encephalopathy and had some altered mental status from this. He presents to [facility] with worsening dyspnea, nausea, and vomiting. GI has been consulted for elevated liver enzymes. His bilirubin is 3.3. AST was 594 and is now a 1031; ALT was 570, now 1029; alkaline phosphatase of 255, platelets are 284, albumin is 2.8. INR is 3. Ultrasound showed a contracted gallbladder with no stones similar to his ultrasound which was seen on 01/14/2017. Of note, his liver enzymes were also elevated, but not as much in January of 2017, when he had a bilirubin of 2.5 and transaminases in the 100s. PAST MEDICAL HISTORY: Cardiomyopathy, severe mitral regurgitation, seizures secondary to PA, hypertension, anxiety, and rheumatoid arthritis as a child. SOCIAL HISTORY: Former tobacco use. ALLERGIES: NO KNOWN DRUG ALLERGIES. FAMILY HISTORY: CHF and esophageal cancer. MEDICATIONS: Reviewed. PHYSICAL EXAMINATION: VITAL SIGNS: The patient is afebrile. His vital signs have been stable aside from some tachycardia in the 100 range. HEENT: Mucous membranes moist. CARDIAC: S1 and S2. 3 to 4/6 murmur heard. ABDOMEN: Soft. No fluid wave. Minimal tenderness to palpation, but no rebound or guarding. Bowel sounds normoactive. LABORATORY DATA: Show WBC 13.1, hemoglobin 13.4, hematocrit 38.8, platelets 284. Sodium 132, potassium 5.3, chloride 98, bicarb 23, BUN 36, creatinine 1.66, glucose 106. Liver enzymes; bilirubin 3.3, AST 1037, ALT 1029, alkaline phosphatase 255. INR is 3, albumin 2.8. Ultrasound as dictated above. Consultation Report [place] [id number] [place]. [address] NAME: KAILA FLOYD : 73 STATUS : ADM IN PAT#: [id number] AGE: 41 ADM/REG DATE : 02/21/17 MR#: [id number] REPORT SERV DATE: 02/22/17 DICTATED BY: BOY RAGLAND DATE: 02/22/17 REPORT STATUS : Draft TRANSCRIBED BY: MARIJA DATE: 02/22/17 IMPRESSION AND PLAN: 1. Elevated liver enzymes, likely secondary to ischemic hepatitis regarding etiologies of transaminases in this high range into the 1000s, would need to consider ischemic hepatitis, versus acute viral hepatitis, versus acute toxic injury, as the patient has severe congestive heart failure with ejection fraction of 10% to 15%, and has had elevated liver enzymes recently in the 100s range for his transaminases, most likely this represents acute on chronic ischemic hepatopathy, and would evaluate for viral hepatitis which has already been ordered and is pending at this time. The patient denies any new medications or Tylenol use. It is concerning however that his INR is now elevated without any anticoagulation suggesting now hepatic dysfunction rather than just an uncomplicated injury. 2. Coffee-grounds emesis. Of note, while patient was on the floor earlier today. He had some coffee-grounds emesis of about 100 to 200 mL with some dark green material with increase in the patient's Protonix to a drip and would transfuse two units of FFP. However, keeping in mind that he would easily go into fluid overload and is at risk for this. I have discussed this with the patient and his nurse. Unable to perform EGD for further evaluation at this time, due to supratherapeutic INR. Serial H and H, and transfuse as needed. Avoid any NSAIDs and we will continue to follow. AMARI/MARIJA Boy Ragland MD / [id number] CC: Emerald Nugent M.D.
--- NOTE | ~2017-02-21 | IDS ---
Interim Discharge Summary [facility] [address] [place]. [address] NAME: KAILA GRANDE : 73 STATUS : ADM IN [facility]#: [id number] AGE: 41 ADM/REG DATE : 02/21/17 MR#: [id number] REPORT SERV DATE: 02/25/17 DICTATED BY: MARIANA CHINO DATE: 02/25/17 REPORT STATUS : Draft TRANSCRIBED BY: MODL DATE: 02/25/17 ADMISSION DATE: 02/21/2017 DISCHARGE DATE: Date of transfer to [facility] is 02/21/2017. DIAGNOSES: So far include, 1. Acute and fulminant hepatitis - unknown reason, most likely cardiogenic liver as the patient's hepatitis profile has come back negative. 2. The patient's liver enzymes are coming down nicely, but continues to be elevated. 3. 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 OTHER DIAGNOSES: In this patient basically revolve around his heart failure itself. 1. The patient has had a pulseless electrical activity arrest in the past. 2. His cardiomyopathy is supposed to be from a viral cause. Human immunodeficiency virus test is pending at this time. 3. History of seizures from pulseless electrical activity, but seizures have not been an issue during this admission and the patient has not had any. 4. Severe mitral regurgitation from above. BRIEF COURSE: While in the [facility], the patient essentially was admitted on 02/21/2017 with diagnosis of acute exacerbation of systolic and diastolic heart failure from dilated cardiomyopathy as his ejection fraction was only 10%. The patient, I understand, was actually on the scheduled list for a cardiac transplant or heart transplant, but when they evaluated him, he was rejected because he was supposed to have had some anoxic brain injury from previous PEA/cardiac arrest. Hence, currently, as far as I know, he is not on the list for cardiac transplant. Ultimately, he will need one. The patient was transferred to [facility] on the day of admission itself because he had hematemesis, nausea and vomiting, and also fulminant hepatitis with extremely elevated AST and ALT in the 4000 and 7000 range. The patient was held n.p.o., started on PPI, and given IV fluids and supportive care. Again, IV fluids were given carefully because of his heart failure issue. Both Cardiology and GI have been consulted. Because of his poor ejection fraction, the patient was started on milrinone IV. His hematemesis resolved. Nausea and vomiting have completely resolved, but the patient continues to be on IV milrinone per Cardiology. Once he comes off the IV milrinone, if he is stable, he could be moved out of [facility] as of now. His hematemesis, nausea, and vomiting are not an issue anymore. His LFTs have also been nicely coming down and the last one I have shows an AST that is down to the 800 and ALT that is down to the 1000s. This is much better than what they were before. As mentioned before, HIV test is pending, but hepatitis profile is negative. RRA/MODL Interim Discharge Summary [address] [place]. [address] NAME: KAILA GRANDE : 73 STATUS : ADM IN [facility]#: [id number] AGE: 41 ADM/REG DATE : 02/21/17 MR#: [id number] REPORT SERV DATE: 02/25/17 DICTATED BY: MARIANA CHINO DATE: 02/25/17 REPORT STATUS : Draft TRANSCRIBED BY: MARIJA DATE: 02/25/17 Mariana Chino M.D. / [id number] CC: Mariana Chino M.D.
--- NOTE | ~2017-02-21 | DS ---
Discharge Summary [facility] [address] [place]. [address] NAME: KAILA GRANDE : 73 STATUS : DIS IN PAT#: [id number] AGE: 41 ADM/REG DATE : 02/21/17 MR#: [id number] REPORT SERV DATE: 03/05/17 DICTATED BY: DATE: REPORT STATUS : Draft TRANSCRIBED BY: MODL DATE: 03/01/17 ADMISSION DATE: 02/21/2017 DISCHARGE DATE: 03/01/2017 The patient was admitted to the [facility]. CONSULTANTS: Dr. Raf Dexter of Cardiology and Dr. Symone Ragland of Gastroenterology. DISCHARGE DIAGNOSES: 1. 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 2. Acute fulminant hepatitis, likely due to cardiogenic liver, MELD score 14. 3. Elevated creatinine-possible cardiorenal syndrome. 4. Hypotension. 5. History of drug use-urine drug screen positive for marijuana and opiates. 6. Cognitive impairment and short-term memory loss due to history of PEA arrest. 7. Left upper extremity DVT-suspect related to prior central line. Not a candidate for anticoagulation due to end-stage liver disease and hematemesis this admission. IMAGIN. Portable chest x-ray, 02/21/2017, shows right pleural fluid. 2. Gallbladder ultrasound, 02/21/2017, contracted gallbladder around stones, may be related to chronic cholecystitis. 3. Portable chest x-ray, 02/22/2017, vascular congestion. 4. Echocardiogram, 02/22/2017, severely decreased left ventricular function with estimated EF 10% to 15%. Dilated left ventricle with global hypocontractility. Mildly enlarged right ventricle with severely decreased systolic function. Severe mitral regurgitation. 5. Portable chest x-ray, 02/25/2017, vascular congestion. 6. Left upper extremity venous Doppler ultrasound showing extensive left upper extremity DVT with occlusive thrombus in the left IJ, left subclavian, left brachial, left basilic vein. PROCEDURES: Coronary artery catheterization, 02/28/2017, showing no occlusive coronary artery disease. PERTINENT LABS: Discharge labs include white blood cell count 10.1, hemoglobin 13.5, hematocrit 38, platelets 202, INR 1.7. Creatinine 1.5. ALT 821, AST 84, alkaline phosphatase 260. Total bilirubin 2.7. BRIEF HISTORY: For full details, please see the previously dictated history of present illness by Dr. Georgette Staton. This is a 41-year-old white male diagnosed with viral cardiomyopathy in 01/2017, presented to the hospital with acute shortness of breath, suffered PEA arrest, was intubated and placed on the hypothermic protocol. He ultimately was transferred to [facility] for transplant evaluation, but was not felt to be a transplant candidate due to anoxic encephalopathy and abnormal cognition. He was in the hospital for about a month and then discharged back home on 02/13/2017. On 02/21/2017, he Discharge Summary [facility] [address] [facility] [address] [place]. [address] NAME: KAILA GRANDE : 73 STATUS : DIS IN PAT#: [id number] AGE: 41 ADM/REG DATE : 02/21/17 MR#: [id number] REPORT SERV DATE: 03/05/17 DICTATED BY: DATE: REPORT STATUS : Draft TRANSCRIBED BY: MODL DATE: 03/01/17 woke up short of breath and anxious, asking his girlfriend to transport him for further evaluation in the emergency department. He was admitted to the Hospitalist Service for management of heart failure with associated acute pulmonary edema, with also noted abnormal liver function test due to cardiogenic causes. HOSPITAL COURSE: For full details, please refer interim discharge summary by Dr. Emerald Nugent, on 02/25/2017, for summary of the patient's course through those dates of service. The patient was being followed by the Cardiology Service, diuresing well, on IV Milrinone, with some improvement in his shortness of breath and edema. However, he continued to be very weak. His liver enzymes were elevated but improving day by day. He and his girlfriend were undecided about whether to pursue repeat transplant evaluation or to go home with hospice. Both options were explored. Multiple calls were made by the cover machine operator to additional transplant centers, and the patient was not felt to be appropriate for transplant or ventricular assist device at either [place] or [facility] due to advanced liver disease with MELD score of 14, psychosocial issues, questionable compliance, lack of insurance, and positive urine drug screen. Thus, the patient decided that he wanted to go home with hospice. Then there were discussions about whether this would be with a LifeVest and milrinone or not. The patient and his girlfriend ultimately decided to decline both. The patient's left upper extremity was swollen during the dates I cared for him. An ultrasound was obtained, demonstrating extensively occlusive thrombus of the left upper extremity. An ultrasound was obtained and demonstrated extensive DVT. However, the patient is not felt to be a candidate for therapeutic anticoagulation due to elevated INR of 1.7 and end-stage liver disease with history of hematemesis. Thus supportive measures are recommended including elevation and aspirin. DISPOSITION: The patient is being discharged to home with his girlfriend, with hospice through [facility]. Supplemental oxygen will be provided for his comfort with instructions to keep his left arm elevated for comfort as well. DISCHARGE MEDICATIONS: Include Bumex 1 mg p.o. twice a day, Keppra 500 mg p.o. twice a day, Aldactone 25 mg p.o. daily, aspirin 81 mg p.o. daily. DICTATED BY: Zakia De La Fuente/MARIJA Tarik Harmon M.D. / [id number] CC: Tarik Harmon M.D. Discharge Summary [address] [address] NAME: KAILA GRANDE : 73 STATUS : DIS IN PAT#: [id number] AGE: 41 ADM/REG DATE : 02/21/17 MR#: [id number] REPORT SERV DATE: 03/05/17 DICTATED BY: DATE: REPORT STATUS : Draft TRANSCRIBED BY: MODL DATE: 03/01/17 [facility]
[~2017-02-21 05:03] MED LIST: AUG875 PO; M-END DMX LIQU473 ML PO; [UNRECOGNIZED DRUG - REMARK] NAS
[2017-02-21 05:34] LABS: ER CBC TAT 0 Hrs 15 Mins; HEMOGLOBIN 13.4 g/dL (13.6-17.8); MEAN CORPUS HGB CONC 34.5 g/dL (32.0-36.0); MEAN CORPUSCULAR HEMOGLOB 34.6 pg (26.0-34.0); MEAN CORPUSCULAR VOLUME 100.3 fL (80-100); MEAN PLATELET VOLUME 10.1 fL (9.2-13.0); RBC DISTRIBUTION WIDTH 15.4 % (12.0-16.0); RED CELL COUNT 3.87 10/6/uL (4.7-6.1); WHITE BLOOD CELLS 13.1 10/3/uL (4.5-10.5)
[2017-02-21 05:36] LABS: HEMATOCRIT 38.8 % (40.0-51.0); MANUAL DIFF YES %; PLATELET COUNT 284 10/3/uL (150-400)
[2017-02-21 05:47] LABS: ALBUMIN 3.1 G/DL (3.5-5.0); BUN (BLOOD UREA NITROGEN) 29 MG/DL (6-23); CHLORIDE, SERUM 99 MMOL/L (96-112); CO2 (CARBON DIOXIDE) 17 MMOL/L (24-34); CREATININE 1.61 MG/DL (0.70-1.30); GFR AFRICAN AMERICAN 60 ML/MIN (>=60); GFR NON AFRICAN AMERICAN 52 ML/MIN (>=60); GLUCOSE, SERUM 57 MG/DL (60-99); POTASSIUM, SERUM 5.1 MMOL/L (3.5-5.3); SGOT(AST) 1155 U/L (5-40); SGPT(ALT) 929 U/L (5-65); SODIUM, SERUM 134 MMOL/L (135-148); TOTAL BILIRUBIN 2.7 MG/DL (0-1.2); TOTAL PROTEIN 7.5 G/DL (6.0-8.5)
[2017-02-21 05:48] LABS: A/G RATIO 0.7 (0.7-1.9); ALKALINE PHOSPHATASE 270 U/L (45-117); GLOBULIN 4.4 G/DL (2.5-4.1)
[2017-02-21 06:00] LABS: BAND NEUTROPHILS 2 %; ER DIFF TAT 0 Hrs 41 Mins; IMMATURE GRANS ABSOLUTE (CALC) 0.13 10/3/uL (0.0-0.11); LYMPHOCYTES 16 %; MACROCYTES 1+ (5-10/OIF) (0-5/OIF); MONOCYTES 9 %; MONOCYTES ABSOLUTE (CALC) 1.18 10/3/uL (0.21-1.20); MYELOCYTES 1 %; NEUTROPHILS ABSOLUTE (CALC) 9.69 10/3/uL (2.02-8.40); PLATELET ESTIMATE ADQ (ADEQUATE); RBC MORPHOLOGY ABN (NORMAL); SEGMENTED NEUTROPHIL (0) 72 %; TOTAL NUCLEATED CELLS 100
[2017-02-21] MEDS ORDERED: L40 PO (06:54)
[2017-02-21] MEDS ORDERED: TOPXL25 PO (06:55)
[2017-02-21] MEDS ORDERED: KEPPRA500 PO (06:56)
[2017-02-21] MEDS ORDERED: SPIRO25 PO (06:57)
[2017-02-21 15:21] LABS: PARTIAL THROMBO TIME 38.3 SEC (22.5-37.2)
[2017-02-21 15:24] LABS: PROTIME (NOT ORD) 30.9 SEC (12.0-14.5)
[2017-02-21 15:43] LABS: A/G RATIO 0.8 (0.7-1.9); ALBUMIN 2.8 G/DL (3.5-5.0); CALCIUM, SERUM 8.9 MG/DL (8.5-10.4); CHLORIDE, SERUM 98 MMOL/L (96-112); CREATININE 1.66 MG/DL (0.70-1.30); GFR AFRICAN AMERICAN 58 ML/MIN (>=60); GFR NON AFRICAN AMERICAN 50 ML/MIN (>=60); GLOBULIN 3.7 G/DL (2.5-4.1); POTASSIUM, SERUM 5.3 MMOL/L (3.5-5.3); SGOT(AST) 7037 U/L (5-40); SGPT(ALT) 4029 U/L (5-65); SODIUM, SERUM 132 MMOL/L (135-148); TOTAL PROTEIN 6.5 G/DL (6.0-8.5)
[2017-02-21 15:44] LABS: ALKALINE PHOSPHATASE 255 U/L (45-117); BUN (BLOOD UREA NITROGEN) 36 MG/DL (6-23); CO2 (CARBON DIOXIDE) 23 MMOL/L (24-34); GLUCOSE, SERUM 106 MG/DL (60-99); TOTAL BILIRUBIN 3.3 MG/DL (0-1.2); TROPONIN I 0.09 NG/ML (<0.05)
[2017-02-21 20:20] LABS: WBC (NOT ORDERED) (RFLEX) 0 (0-5)
[2017-02-21 20:48] LABS: HEMATOCRIT 34.4 % (40.0-51.0)
[2017-02-21 21:06] LABS: ASCORBIC ACID (UR NOT ORDER) NEG (NEG); BILIRUBIN, URINE NEGATIVE (NEG); KETONE, URINE NEGATIVE (NEG); LEUKOCYTE ESTERASE(NOT OR NEG (NEG)
[2017-02-22 04:34] LABS: BASOPHILS 0.1 %; BASOPHILS ABSOLUTE 0.01 10/3/uL (0.0-0.16); EOSINOPHILS 0 %; HEMOGLOBIN 10.7 g/dL (13.6-17.8); IMMATURE GRANULOCYTES 0.4 %; IMMATURE GRANULOCYTES ABSOLUTE 0.04 10/3/uL (0.0-0.11); LYMPHOCYTES 14.5 %; LYMPHOCYTES ABSOLUTE 1.64 10/3/uL (0.67-4.30); MEAN CORPUSCULAR HEMOGLOB 34.2 pg (26.0-34.0); MEAN CORPUSCULAR VOLUME 97.8 fL (80-100); MEAN PLATELET VOLUME 9.6 fL (9.2-13.0); MONOCYTES 7.4 %; MONOCYTES ABSOLUTE 0.84 10/3/uL (0.21-1.20); NEUTROPHILS 77.6 %; NEUTROPHILS ABSOLUTE 8.79 10/3/uL (2.02-8.40); RBC DISTRIBUTION WIDTH 15.1 % (12.0-16.0); RED CELL COUNT 3.13 10/6/uL (4.7-6.1); WHITE BLOOD CELLS 11.3 10/3/uL (4.5-10.5)
[2017-02-22 04:35] LABS: HEMATOCRIT 30.6 % (40.0-51.0); MANUAL DIFF NO %; PLATELET COUNT 190 10/3/uL (150-400)
[2017-02-22 04:40] LABS: INTERNATIONAL NORMAL RATI 2.5 UNITS (-); PARTIAL THROMBO TIME 37.9 SEC (22.5-37.2); PROTIME (NOT ORD) 26.9 SEC (12.0-14.5)
[2017-02-22 05:06] LABS: A/G RATIO 0.8 (0.7-1.9); ALBUMIN 2.7 G/DL (3.5-5.0); BUN (BLOOD UREA NITROGEN) 36 MG/DL (6-23); CALCIUM, SERUM 8.3 MG/DL (8.5-10.4); CHLORIDE, SERUM 101 MMOL/L (96-112); CO2 (CARBON DIOXIDE) 20 MMOL/L (24-34); CREATININE 1.46 MG/DL (0.70-1.30); GFR AFRICAN AMERICAN 68 ML/MIN (>=60); GFR NON AFRICAN AMERICAN 58 ML/MIN (>=60); GLOBULIN 3.4 G/DL (2.5-4.1); GLUCOSE, SERUM 103 MG/DL (60-99); SGOT(AST) 4675 U/L (5-40); SGPT(ALT) 3400 U/L (5-65); SODIUM, SERUM 134 MMOL/L (135-148); TOTAL PROTEIN 6.1 G/DL (6.0-8.5)
[2017-02-22 05:15] LABS: ALKALINE PHOSPHATASE 236 U/L (45-117); POTASSIUM, SERUM 3.9 MMOL/L (3.5-5.3)
[2017-02-22 09:54] LABS: HEPATITIS C ANTIBODY NON-REACTIVE (NON-REACT)
[2017-02-22 09:55] LABS: HEPATITIS B CORE AB IGM NON-REACTIVE (NON-REAC)
[2017-02-22 09:56] LABS: HEP A ANTIBODY IGM NON-REACTIVE (NON-REACT)
[2017-02-22 09:58] LABS: HEPATITIS B SURFACE ANTIGEN NON-REACTIVE (NON-REACT)
[2017-02-22 11:46] LABS: HEMOGLOBIN 11.5 g/dL (13.6-17.8)
[2017-02-22 12:17] LABS: A/G RATIO 0.8 (0.7-1.9); ALBUMIN 2.7 G/DL (3.5-5.0); CALCIUM, SERUM 8.2 MG/DL (8.5-10.4); CHLORIDE, SERUM 102 MMOL/L (96-112); CO2 (CARBON DIOXIDE) 21 MMOL/L (24-34); CREATININE 1.37 MG/DL (0.70-1.30); GFR AFRICAN AMERICAN 73 ML/MIN (>=60); GFR NON AFRICAN AMERICAN 63 ML/MIN (>=60); GLOBULIN 3.6 G/DL (2.5-4.1); GLUCOSE, SERUM 96 MG/DL (60-99); POTASSIUM, SERUM 4.1 MMOL/L (3.5-5.3); SGPT(ALT) 3232 U/L (5-65); SODIUM, SERUM 133 MMOL/L (135-148); TOTAL BILIRUBIN 3.4 MG/DL (0-1.2); TOTAL PROTEIN 6.3 G/DL (6.0-8.5)
[2017-02-22 12:25] LABS: ALKALINE PHOSPHATASE 253 U/L (45-117); BUN (BLOOD UREA NITROGEN) 32 MG/DL (6-23); SGOT(AST) 3363 U/L (5-40); TROPONIN I 0.06 NG/ML (<0.05)
[2017-02-22 13:57] LABS: HEPATITIS B SURFACE ANTIGEN NON-REACTIVE (NON-REACT)
[2017-02-22 14:25] LABS: HEPATITIS C ANTIBODY NON-REACTIVE (NON-REACT)
[2017-02-22 14:26] LABS: HEPATITIS B CORE AB IGM NON-REACTIVE (NON-REAC)
[2017-02-22 14:27] LABS: HEP A ANTIBODY IGM NON-REACTIVE (NON-REACT)
[2017-02-22 16:26] LABS: AMPHETAMINES (NOT ORD) NEG (NEG); BARBITURATES (NOT ORDERED NEG (NEG); BENZODIAZEPINES (NOT ORD) NEG (NEG); CANNABINOIDS (THC) POS (NEG); COCAINE (NOT ORDERED) NEG (NEG); OPIATES POS (NEG); PHENCYCLIDINE(PCP) NEG (NEG); TRICYCLICS NEG (NEG)
[2017-02-23 05:25] LABS: CALCIUM, SERUM 7.7 MG/DL (8.5-10.4); CHLORIDE, SERUM 101 MMOL/L (96-112); CREATININE 1.05 MG/DL (0.70-1.30); GFR AFRICAN AMERICAN 101 ML/MIN (>=60); GFR NON AFRICAN AMERICAN 87 ML/MIN (>=60); GLUCOSE, SERUM 109 MG/DL (60-99); SODIUM, SERUM 137 MMOL/L (135-148)
[2017-02-23 05:27] LABS: BUN (BLOOD UREA NITROGEN) 24 MG/DL (6-23); CO2 (CARBON DIOXIDE) 26 MMOL/L (24-34); POTASSIUM, SERUM 3.2 MMOL/L (3.5-5.3)
[2017-02-23 05:38] LABS: BASOPHILS 0.2 %; BASOPHILS ABSOLUTE 0.02 10/3/uL (0.0-0.16); EOSINOPHILS 0.5 %; EOSINOPHILS ABSOLUTE 0.05 10/3/uL (0.0-0.53); HEMATOCRIT 33.5 % (40.0-51.0); HEMOGLOBIN 11.7 g/dL (13.6-17.8); IMMATURE GRANULOCYTES 0.5 %; IMMATURE GRANULOCYTES ABSOLUTE 0.05 10/3/uL (0.0-0.11); LYMPHOCYTES 15.4 %; LYMPHOCYTES ABSOLUTE 1.48 10/3/uL (0.67-4.30); MEAN CORPUS HGB CONC 34.9 g/dL (32.0-36.0); MEAN CORPUSCULAR HEMOGLOB 34.5 pg (26.0-34.0); MEAN CORPUSCULAR VOLUME 98.8 fL (80-100); MEAN PLATELET VOLUME 9.8 fL (9.2-13.0); MONOCYTES 6.5 %; MONOCYTES ABSOLUTE 0.63 10/3/uL (0.21-1.20); NEUTROPHILS 76.9 %; NUCLEATED RED BLOOD CELLS 0.9 /100WBC (0-0); PLATELET COUNT 180 10/3/uL (150-400); RBC DISTRIBUTION WIDTH 15.5 % (12.0-16.0); RED CELL COUNT 3.39 10/6/uL (4.7-6.1); WHITE BLOOD CELLS 9.6 10/3/uL (4.5-10.5)
[2017-02-23 05:41] LABS: MANUAL DIFF NO %
[2017-02-23 10:18] LABS: SGOT(AST) 1614 U/L (5-40); SGPT(ALT) 2348 U/L (5-65); TOTAL PROTEIN 5.7 G/DL (6.0-8.5)
[2017-02-23 10:22] LABS: ALBUMIN 0.6 G/DL (3.5-5.0); ALKALINE PHOSPHATASE 240 U/L (45-117); DIRECT BILIRUBIN 1.4 MG/DL (0.0-0.4); INDIRECT BILIRUBIN(NOT ORDER) 1.4 MG/DL (0.1-0.9); TOTAL BILIRUBIN 2.8 MG/DL (0-1.2)
[2017-02-23 13:09] LABS: BUN (BLOOD UREA NITROGEN) 21 MG/DL (6-23); CALCIUM, SERUM 7.8 MG/DL (8.5-10.4); CHLORIDE, SERUM 101 MMOL/L (96-112); CO2 (CARBON DIOXIDE) 27 MMOL/L (24-34); CREATININE 1.08 MG/DL (0.70-1.30); GFR AFRICAN AMERICAN 98 ML/MIN (>=60); GFR NON AFRICAN AMERICAN 84 ML/MIN (>=60); POTASSIUM, SERUM 3.6 MMOL/L (3.5-5.3); SGOT(AST) 1250 U/L (5-40); SGPT(ALT) 2310 U/L (5-65); SODIUM, SERUM 132 MMOL/L (135-148); TOTAL BILIRUBIN 2.9 MG/DL (0-1.2); TOTAL PROTEIN 6.1 G/DL (6.0-8.5); TROPONIN I 0.03 NG/ML (<0.05)
[2017-02-23 13:10] LABS: A/G RATIO 0.7 (0.7-1.9); ALBUMIN 2.6 G/DL (3.5-5.0); ALKALINE PHOSPHATASE 255 U/L (45-117); GLOBULIN 3.5 G/DL (2.5-4.1); GLUCOSE, SERUM 81 MG/DL (60-99)
[2017-02-24 05:35] LABS: BASOPHILS 0.4 %; BASOPHILS ABSOLUTE 0.03 10/3/uL (0.0-0.16); EOSINOPHILS 0.5 %; EOSINOPHILS ABSOLUTE 0.04 10/3/uL (0.0-0.53); HEMATOCRIT 34.6 % (40.0-51.0); IMMATURE GRANULOCYTES 0.6 %; IMMATURE GRANULOCYTES ABSOLUTE 0.05 10/3/uL (0.0-0.11); LYMPHOCYTES 17.6 %; LYMPHOCYTES ABSOLUTE 1.45 10/3/uL (0.67-4.30); MEAN CORPUS HGB CONC 34.7 g/dL (32.0-36.0); MEAN CORPUSCULAR HEMOGLOB 34.4 pg (26.0-34.0); MEAN CORPUSCULAR VOLUME 99.1 fL (80-100); MEAN PLATELET VOLUME 10.5 fL (9.2-13.0); MONOCYTES 10.7 %; MONOCYTES ABSOLUTE 0.88 10/3/uL (0.21-1.20); NEUTROPHILS 70.2 %; NEUTROPHILS ABSOLUTE 5.77 10/3/uL (2.02-8.40); NUCLEATED RED BLOOD CELLS 2.3 /100WBC (0-0); PLATELET COUNT 166 10/3/uL (150-400); RBC DISTRIBUTION WIDTH 16.4 % (12.0-16.0); RED CELL COUNT 3.49 10/6/uL (4.7-6.1); WHITE BLOOD CELLS 8.2 10/3/uL (4.5-10.5)
[2017-02-24 05:36] LABS: MANUAL DIFF NO %
[2017-02-24 05:44] LABS: A/G RATIO 0.7 (0.7-1.9); ALBUMIN 2.5 G/DL (3.5-5.0); ALKALINE PHOSPHATASE 248 U/L (45-117); BUN (BLOOD UREA NITROGEN) 20 MG/DL (6-23); CALCIUM, SERUM 8.1 MG/DL (8.5-10.4); CHLORIDE, SERUM 102 MMOL/L (96-112); CO2 (CARBON DIOXIDE) 23 MMOL/L (24-34); CREATININE 1.03 MG/DL (0.70-1.30); GFR AFRICAN AMERICAN 103 ML/MIN (>=60); GFR NON AFRICAN AMERICAN 89 ML/MIN (>=60); GLOBULIN 3.6 G/DL (2.5-4.1); POTASSIUM, SERUM 3.7 MMOL/L (3.5-5.3); SGOT(AST) 851 U/L (5-40); SGPT(ALT) 1902 U/L (5-65); SODIUM, SERUM 133 MMOL/L (135-148); TOTAL BILIRUBIN 2.7 MG/DL (0-1.2); TOTAL PROTEIN 6.1 G/DL (6.0-8.5)
[2017-02-24 05:49] LABS: GLUCOSE, SERUM 102 MG/DL (60-99)
[2017-02-25 05:08] LABS: BASOPHILS 0.5 %; BASOPHILS ABSOLUTE 0.04 10/3/uL (0.0-0.16); EOSINOPHILS 0.3 %; EOSINOPHILS ABSOLUTE 0.03 10/3/uL (0.0-0.53); HEMATOCRIT 34.7 % (40.0-51.0); HEMOGLOBIN 12.1 g/dL (13.6-17.8); IMMATURE GRANULOCYTES 0.7 %; IMMATURE GRANULOCYTES ABSOLUTE 0.06 10/3/uL (0.0-0.11); LYMPHOCYTES 23.1 %; MANUAL DIFF NO %; MEAN CORPUS HGB CONC 34.9 g/dL (32.0-36.0); MEAN CORPUSCULAR HEMOGLOB 34.5 pg (26.0-34.0); MEAN CORPUSCULAR VOLUME 98.9 fL (80-100); MEAN PLATELET VOLUME 10.7 fL (9.2-13.0); MONOCYTES ABSOLUTE 0.87 10/3/uL (0.21-1.20); NEUTROPHILS 65.4 %; NEUTROPHILS ABSOLUTE 5.66 10/3/uL (2.02-8.40); PLATELET COUNT 156 10/3/uL (150-400); RBC DISTRIBUTION WIDTH 16.8 % (12.0-16.0); RED CELL COUNT 3.51 10/6/uL (4.7-6.1); WHITE BLOOD CELLS 8.7 10/3/uL (4.5-10.5)
[2017-02-25 05:22] LABS: A/G RATIO 0.7 (0.7-1.9); ALBUMIN 2.6 G/DL (3.5-5.0); ALKALINE PHOSPHATASE 240 U/L (45-117); BUN (BLOOD UREA NITROGEN) 21 MG/DL (6-23); CALCIUM, SERUM 8.4 MG/DL (8.5-10.4); CHLORIDE, SERUM 102 MMOL/L (96-112); CO2 (CARBON DIOXIDE) 22 MMOL/L (24-34); CREATININE 1.02 MG/DL (0.70-1.30); DIRECT BILIRUBIN 1.4 MG/DL (0.0-0.4); GFR AFRICAN AMERICAN 105 ML/MIN (>=60); GFR NON AFRICAN AMERICAN 90 ML/MIN (>=60); GLOBULIN 3.5 G/DL (2.5-4.1); GLUCOSE, SERUM 96 MG/DL (60-99); INDIRECT BILIRUBIN(NOT ORDER) 1.1 MG/DL (0.1-0.9); POTASSIUM, SERUM 3.9 MMOL/L (3.5-5.3); SGOT(AST) 531 U/L (5-40); SGPT(ALT) 1532 U/L (5-65); SODIUM, SERUM 135 MMOL/L (135-148); TOTAL BILIRUBIN 2.5 MG/DL (0-1.2); TOTAL PROTEIN 6.1 G/DL (6.0-8.5)
[2017-02-26 04:36] LABS: BASOPHILS 0.5 %; BASOPHILS ABSOLUTE 0.04 10/3/uL (0.0-0.16); EOSINOPHILS ABSOLUTE 0.08 10/3/uL (0.0-0.53); HEMATOCRIT 35.4 % (40.0-51.0); HEMOGLOBIN 12.2 g/dL (13.6-17.8); IMMATURE GRANULOCYTES 0.6 %; IMMATURE GRANULOCYTES ABSOLUTE 0.05 10/3/uL (0.0-0.11); LYMPHOCYTES 22.6 %; MEAN CORPUS HGB CONC 34.5 g/dL (32.0-36.0); MEAN CORPUSCULAR HEMOGLOB 34.2 pg (26.0-34.0); MEAN CORPUSCULAR VOLUME 99.2 fL (80-100); MEAN PLATELET VOLUME 10.4 fL (9.2-13.0); MONOCYTES 9.5 %; NEUTROPHILS 65.8 %; NEUTROPHILS ABSOLUTE 5.55 10/3/uL (2.02-8.40); PLATELET COUNT 160 10/3/uL (150-400); RED CELL COUNT 3.57 10/6/uL (4.7-6.1); WHITE BLOOD CELLS 8.4 10/3/uL (4.5-10.5)
[2017-02-26 04:37] LABS: MANUAL DIFF NO %
[2017-02-26 04:56] LABS: A/G RATIO 0.8 (0.7-1.9); ALBUMIN 2.6 G/DL (3.5-5.0); ALKALINE PHOSPHATASE 232 U/L (45-117); BUN (BLOOD UREA NITROGEN) 17 MG/DL (6-23); CALCIUM, SERUM 8.5 MG/DL (8.5-10.4); CHLORIDE, SERUM 105 MMOL/L (96-112); CO2 (CARBON DIOXIDE) 23 MMOL/L (24-34); CREATININE 1.03 MG/DL (0.70-1.30); GFR AFRICAN AMERICAN 103 ML/MIN (>=60); GFR NON AFRICAN AMERICAN 89 ML/MIN (>=60); GLOBULIN 3.4 G/DL (2.5-4.1); GLUCOSE, SERUM 100 MG/DL (60-99); POTASSIUM, SERUM 3.6 MMOL/L (3.5-5.3); SGOT(AST) 267 U/L (5-40); SGPT(ALT) 1153 U/L (5-65); SODIUM, SERUM 138 MMOL/L (135-148); TOTAL BILIRUBIN 2.2 MG/DL (0-1.2)
[2017-02-27 05:44] LABS: BASOPHILS 0.4 %; BASOPHILS ABSOLUTE 0.05 10/3/uL (0.0-0.16); EOSINOPHILS 0.5 %; EOSINOPHILS ABSOLUTE 0.06 10/3/uL (0.0-0.53); HEMOGLOBIN 14.6 g/dL (13.6-17.8); IMMATURE GRANULOCYTES 0.5 %; IMMATURE GRANULOCYTES ABSOLUTE 0.06 10/3/uL (0.0-0.11); LYMPHOCYTES 24.5 %; LYMPHOCYTES ABSOLUTE 2.81 10/3/uL (0.67-4.30); MANUAL DIFF NO %; MEAN CORPUS HGB CONC 34.8 g/dL (32.0-36.0); MEAN CORPUSCULAR HEMOGLOB 34.7 pg (26.0-34.0); MEAN CORPUSCULAR VOLUME 99.8 fL (80-100); MEAN PLATELET VOLUME 10.5 fL (9.2-13.0); MONOCYTES 8.5 %; MONOCYTES ABSOLUTE 0.98 10/3/uL (0.21-1.20); NEUTROPHILS 65.6 %; NEUTROPHILS ABSOLUTE 7.53 10/3/uL (2.02-8.40); NUCLEATED RED BLOOD CELLS 0.6 /100WBC (0-0); PLATELET COUNT 202 10/3/uL (150-400); RBC DISTRIBUTION WIDTH 17.4 % (12.0-16.0); RED CELL COUNT 4.21 10/6/uL (4.7-6.1); WHITE BLOOD CELLS 11.5 10/3/uL (4.5-10.5)
[2017-02-27 06:05] LABS: A/G RATIO 0.8 (0.7-1.9); ALBUMIN 3.1 G/DL (3.5-5.0); BUN (BLOOD UREA NITROGEN) 20 MG/DL (6-23); CALCIUM, SERUM 8.8 MG/DL (8.5-10.4); CHLORIDE, SERUM 102 MMOL/L (96-112); CO2 (CARBON DIOXIDE) 22 MMOL/L (24-34); CREATININE 1.33 MG/DL (0.70-1.30); GFR AFRICAN AMERICAN 76 ML/MIN (>=60); GFR NON AFRICAN AMERICAN 65 ML/MIN (>=60); GLUCOSE, SERUM 116 MG/DL (60-99); SGPT(ALT) 1050 U/L (5-65); SODIUM, SERUM 133 MMOL/L (135-148); TOTAL PROTEIN 7.1 G/DL (6.0-8.5)
[2017-02-27 06:06] LABS: ALKALINE PHOSPHATASE 270 U/L (45-117); POTASSIUM, SERUM 4.9 MMOL/L (3.5-5.3); SGOT(AST) 150 U/L (5-40)
[2017-02-28 08:13] LABS: BASOPHILS 0.6 %; BASOPHILS ABSOLUTE 0.06 10/3/uL (0.0-0.16); EOSINOPHILS 0.4 %; EOSINOPHILS ABSOLUTE 0.04 10/3/uL (0.0-0.53); HEMATOCRIT 38.1 % (40.0-51.0); HEMOGLOBIN 13.5 g/dL (13.6-17.8); IMMATURE GRANULOCYTES 0.8 %; IMMATURE GRANULOCYTES ABSOLUTE 0.08 10/3/uL (0.0-0.11); LYMPHOCYTES 23.9 %; LYMPHOCYTES ABSOLUTE 2.42 10/3/uL (0.67-4.30); MEAN CORPUS HGB CONC 35.4 g/dL (32.0-36.0); MEAN CORPUSCULAR HEMOGLOB 34.9 pg (26.0-34.0); MEAN CORPUSCULAR VOLUME 98.4 fL (80-100); MEAN PLATELET VOLUME 10.6 fL (9.2-13.0); MONOCYTES 9.4 %; MONOCYTES ABSOLUTE 0.95 10/3/uL (0.21-1.20); NEUTROPHILS 64.9 %; NEUTROPHILS ABSOLUTE 6.58 10/3/uL (2.02-8.40); PLATELET COUNT 202 10/3/uL (150-400); RBC DISTRIBUTION WIDTH 17.4 % (12.0-16.0); RED CELL COUNT 3.87 10/6/uL (4.7-6.1); WHITE BLOOD CELLS 10.1 10/3/uL (4.5-10.5)
[2017-02-28 08:18] LABS: MANUAL DIFF NO %
[2017-02-28 08:19] LABS: INTERNATIONAL NORMAL RATI 1.7 UNITS (-); PROTIME (NOT ORD) 19.9 SEC (12.0-14.5)
[2017-02-28 08:30] LABS: A/G RATIO 0.8 (0.7-1.9); ALBUMIN 3.1 G/DL (3.5-5.0); ALKALINE PHOSPHATASE 260 U/L (45-117); BUN (BLOOD UREA NITROGEN) 22 MG/DL (6-23); CALCIUM, SERUM 8.7 MG/DL (8.5-10.4); CHLORIDE, SERUM 99 MMOL/L (96-112); CO2 (CARBON DIOXIDE) 23 MMOL/L (24-34); CREATININE 1.48 MG/DL (0.70-1.30); GFR AFRICAN AMERICAN 67 ML/MIN (>=60); GFR NON AFRICAN AMERICAN 58 ML/MIN (>=60); HDL CHOLESTEROL 20 MG/DL (> 39); SGOT(AST) 84 U/L (5-40); SGPT(ALT) 821 U/L (5-65); SODIUM, SERUM 132 MMOL/L (135-148); TOTAL BILIRUBIN 2.7 MG/DL (0-1.2); TOTAL PROTEIN 7.1 G/DL (6.0-8.5)
[2017-02-28 08:32] LABS: CHOL/HDL RATIO(NOT ORDER) 5.9 (0-5); CHOLESTEROL 117 MG/DL (< 200); GLUCOSE, SERUM 90 MG/DL (60-99); LDL CHOLESTEROL 88 MG/DL (< 130); NON-HDL CHOLESTEROL 97 MG/DL (< 160); POTASSIUM, SERUM 3.7 MMOL/L (3.5-5.3); TRIGLYCERIDE 49 MG/DL (< 150)
[2017-03-01] MEDS ORDERED: BUM1 PO (10:06)
[2017-03-01] MEDS ORDERED: SPIRO25 PO (14:37)
[2017-03-01] MEDS ORDERED: ASAB PO (14:38)
== END 2017-03-01 15:39 | disposition hospice, home (50) | DRG 286 ==
LOC: ER 05:03 → 7NO 08:10 → IMCU 18:17 → 7NO 02-25 19:53
PROVIDERS: Emergency Medicine; Hospitalist; Internal Medicine; Student in an Organized Health Care Education/Training Program
PROC: 30233K1 Transfusion of Nonautologous Frozen Plasma into Peripheral Vein, Percutaneous Approach (ICD-10-PCS; principal; 2017-02-21)
PROC: 4A023N7 Measurement of Cardiac Sampling and Pressure, Left Heart, Percutaneous Approach (ICD-10-PCS; 2017-02-28)
PROC: B2111ZZ Fluoroscopy of Multiple Coronary Arteries using Low Osmolar Contrast (ICD-10-PCS; 2017-02-28)
PROC: B2151ZZ Fluoroscopy of Left Heart using Low Osmolar Contrast (ICD-10-PCS; 2017-02-28)
DX: I13.0 Hypertensive heart and chronic kidney disease with heart failure and stage 1 through stage 4 chronic kidney disease, or unspecified chronic kidney disease (principal); I50.23 Acute on chronic systolic (congestive) heart failure; K92.0 Hematemesis; N17.9 Acute kidney failure, unspecified; J18.9 Pneumonia, unspecified organism; I82.602 Acute embolism and thrombosis of unspecified veins of left upper extremity; R56.9 Unspecified convulsions; B17.8 Other specified acute viral hepatitis; Z51.5 Encounter for palliative care; K76.1 Chronic passive congestion of liver; N18.9 Chronic kidney disease, unspecified; B33.24 Viral cardiomyopathy; G31.84 Mild cognitive impairment of uncertain or unknown etiology; I34.0 Nonrheumatic mitral (valve) insufficiency; Z87.891 Personal history of nicotine dependence; F41.9 Anxiety disorder, unspecified; E16.2 Hypoglycemia, unspecified; K81.9 Cholecystitis, unspecified
CPT/HCPCS: 36415; 36600; 71010; 76705; 80048; 80053; 80061; 80074; 80076; 80305; 81001; 82140; 82150; 82248; 82330; 82803; 82947; 82962; 83605; 83690; 83735; 83880; 84132; 84145; 84295; 84484; 85014; 85018; 85025; 85610; 85730; 86900; 86901; 87040; 87070; 87205; 87389; 87641; 93005; 93308; 93321; 93325; 93458; 93971; 96374; 96375; 96376; 97161-GP; 97165-GO; 99152; 99153; 99285; A9270-GY; C1769; C1894; C9113; G8978-CI-GP; G8979-CH-GP; J1956; J2250; J2260; J2405; J3010; J3475; P9059; Q9967